=== PATIENT | male | born 1935 | race American Indian/Alaskan Native ===

== ENCOUNTER 2018-11-05 11:21 | Inpatient (IN) | payer MEDICARE, MEDICAID ==
--- NOTE | 2018-11-05 11:13 | EDM.PDOC ---
ED HPI GENERAL MEDICAL PROBLEM - General Stated Complaint: LOW BLOOD SUGAR Time Seen by Provider: 11/05/18 10:49 Source of Information: Reports: Patient, Provider History Limitations: Reports: No Limitations - History of Present Illness INITIAL COMMENTS - FREE TEXT/NARRATIVE: This 82 yo male patient was sent to the ED from the group home due to intermittent low blood sugar levels. This patient was admitted to [facility] with a history of an Osteomylitis of the T-spine (sent to [facility] from the [facility]). The patient has been getting IV antibiotics (Ceftriaxone) due to a blood culture that tested positive for Streptococcus anginosus. The patient started to have low blood sugars on Friday (blood sugars were in the 70's). The ambulance was called up to [facility] to start an IV (patient was given 1 amp of D50 and 500 mL of normal saline) . The patient's blood sugars were stable yesterday. Today, the patient had a blood sugar of 78 despite holding the patients Novolog and a reduction in the patient's Lantus from 32 units q HS to 25 units q HS. The patient reports he has noticed increased problems since the middle of June (difficulties walking). The patient reports that he did not have any swelling while he was in the hospital ([facility]). The patient reports he was started on insulin about 1 month ago, but did not have any problems until this week. The patient denies any current pain (denies abdominal pain, denies dysuria). The patient reports he has increased back pain (from hips up to his shoulder when he attempts to get up). Onset: Gradual Duration: Day(s):, Intermittent Location: Reports: Generalized Quality: Reports: Other Severity: Moderate Improves with: Reports: None Worsens with: Reports: None Context: Reports: Other Associated Symptoms: Reports: Weakness, Other (edema (extremities)) Back Pain Score (Numeric/FACES): 7 - Related Data Allergies Allergy/AdvReac Type Severity Reaction Status Date / Time bee venom protein (honey bee) Allergy Anaphylactic Verified 10/15/18 13:47 Shock Home Meds: Home Meds Levothyroxine 125 mcg PO DAILY 09/18/18 [History] Magnesium Oxide 800 mg PO 1200 09/18/18 [History] Simvastatin [Zocor] 20 mg PO BEDTIME 09/18/18 [History] Sodium Chloride 2 tab PO BID 09/18/18 [History] Tamsulosin [Flomax] 0.4 mg PO QPM 09/18/18 [History] Aspirin [Ecotrin] 81 mg PO DAILY 09/21/18 [History] Insulin Glarg,Human.Rec.Analog [Lantus] 32 unit SUBCUT DAILY #3 pen 09/21/18 [Rx ] Lisinopril 5 mg PO DAILY #30 09/21/18 [Rx] Hydrocodone/Acetaminophen [Hydrocodon-Acetaminophen 5-325] 1 tab PO Q6HR PRN [History] Magnesium Oxide 1,200 mg PO .QAM 10/12/18 [History] Sennosides/Docusate Sodium [Senna Laxative Tablet] 1 tab PO DAILY 10/12/18 [ History] Acetaminophen 1,000 mg PO Q6HR PRN 10/15/18 [History] Albuterol Sulfate [Proair Hfa] 2 puff INH Q6HR PRN 10/15/18 [History] Insulin Aspart [NovoLOG] 10 unit SUBCUT .QPM 10/15/18 [History] Insulin Aspart [NovoLOG] 16 unit SUBCUT 1200 10/15/18 [History] Insulin Aspart [NovoLOG] 16 unit SUBCUT QAM 10/15/18 [History] Multivitamin with Minerals [Multivitamins with Minerals] 1 tab PO DAILY [History] Polyethylene Glycol 3350 [MiraLAX] 17 gm PO DAILY PRN 10/15/18 [History] Acetaminophen/HYDROcodone [Ell[place] 325-5 MG] 11/05/18 [History] Lidocaine 5% [Lidoderm 5%] 1 patch TOP DAILY 11/05/18 [History] cefTRIAXone [Rocephin] 2 gm IV DAILY 11/05/18 [History] diphenhydrAMINE [Benadryl] 50 mg PO Q6HR PRN 11/05/18 [History] Past Medical History HEENT History: Reports: Hard of Hearing, Impaired Vision Cardiovascular History: Reports: High Cholesterol, Hypertension Respiratory History: Reports: None Gastrointestinal History: Reports: None Genitourinary History: Reports: Chronic Renal Insuffiency, Prostate Disorder Musculoskeletal History: Reports: Back Pain, Chronic Neurological History: Reports: None Psychiatric History: Reports: None Endocrine/Metabolic History: Reports: Diabetes, Type II, Hypothyroidism, Other ( See Below) Other Endocrine/Metabolic History: hypomagnesemia, hyponatremia Hematologic History: Reports: Other (See Below) Other Hematologic History: microalbuminuria Immunologic History: Reports: None Oncologic (Cancer) History: Reports: None Dermatologic History: Reports: None - Infectious Disease History Infectious Disease History: Reports: None - Past Surgical History Head Surgeries/Procedures: Reports: None HEENT Surgical History: Reports: Eye Surgery GI Surgical History: Reports: Cholecystectomy Male Surgical History: Reports: None Musculoskeletal Surgical History: Reports: Other (See Below) Other Musculoskeletal Surgeries/Procedures:: ankle surgery, back fusion Social & Family History - Family History Family Medical History: Noncontributory - Tobacco Use Smoking Status *Q: Never Smoker Second Hand Smoke Exposure: No - Caffeine Use Caffeine Use: Reports: Coffee, Tea - Recreational Drug Use Recreational Drug Use: No - Living Situation & Occupation Living situation: Reports: Alone Occupation: Retired ED ROS GENERAL - Review of Systems Review Of Systems: ROS reveals no pertinent complaints other than HPI. ED EXAM, GENERAL - Physical Exam Exam: See Below Exam Limited By: No Limitations General Appearance: Alert, WD/WN, Moderate Distress Eye Exam: Bilateral Eye: EOMI, Normal Inspection, PERRL Ears: Normal External Exam, Normal Canal, Hearing Grossly Normal, Normal TMs, Other (bilateral hearing aids) Nose: Normal Inspection, Normal Mucosa, No Blood Throat/Mouth: Normal Inspection, Normal Lips, Normal Teeth, Normal Gums, Normal Oropharynx, Normal Voice, No Airway Compromise Head: Atraumatic, Normocephalic Neck: Normal Inspection, Supple, Non-Tender, Full Range of Motion, Other ( cervical color in place) Respiratory/Chest: No Respiratory Distress, Lungs Clear, Normal Breath Sounds, No Accessory Muscle Use, Chest Non-Tender Cardiovascular: Normal Peripheral Pulses, Regular Rate, Rhythm, No Gallop, No JVD, No Murmur, No Rub GI/Abdominal: Normal Bowel Sounds, Soft, Non-Tender, No Organomegaly, No Distention, No Abnormal Bruit, No Mass (Male) Exam: Deferred Rectal (Males) Exam: Deferred Extremities: Pedal Edema, Other (edema in all extremities) Neurological: Alert, Oriented, CN II-XII Intact, Normal Cognition, Normal Gait, Normal Reflexes, No Motor/Sensory Deficits Psychiatric: Normal Affect, Normal Mood Skin Exam: Warm, Dry, Intact, Normal Color, No Rash Lymphatic: No Adenopathy Course - Vital Signs Last Recorded V/S: Last Vital Signs Temp 35.9 C 11/05/18 10:29 Pulse 76 11/05/18 10:29 Resp 16 11/05/18 10:29 BP 134/60 11/05/18 10:29 Pulse Ox 100 11/05/18 10:29 - Orders/Labs/Meds Orders: Active Orders 24 hr Category Date Time Status CULTURE BLOOD [BC] Stat Lab 11/05/18 10:02 Ordered CULTURE BLOOD [BC] Stat Lab 11/05/18 11:01 Received Blood Culture x2 Reflex Set [OM.PC] Stat Oth 11/05/18 10:01 Ordered Labs: Laboratory Tests 11/05/18 11/05/18 11/05/18 Range/Units 11:01 11:01 11:01 WBC 7.2 (5.0-10.0) 10^3/uL RBC 2.93 L (4.6-6.2) 10^6/uL Hgb 8.5 L (14.0-18.0) g/dL Hct 25.9 L (40.0-54.0) % MCV 88.4 (80-100) fL MCH 29.0 (27.0-34.0) pg MCHC 32.8 L (33.0-35.0) g/dL Plt Count 433 D (150-450) 10^3/uL Neut % (Auto) 71.2 (42.2-75.2) % Lymph % (Auto) 14.6 L (20.5-50.1) % F[place]ardo % (Auto) 7.0 (2-8) % Eos % (Auto) 6.4 H (1.0-3.0) % Baso % (Auto) 0.8 (0.0-1.0) % PT (9.0-12.0) SEC INR (0.9-1.2) Sodium (135-145) mmol/L Potassium (3.6-5.0) mmol/L Chloride (101-111) mmol/L Carbon Dioxide (21.0-31.0) mmol/L Anion Gap BUN (7-18) mg/dL Creatinine (0.6-1.3) mg/dL Est Cr Clr Drug Dosing mL/min Estimated GFR (MDRD) BUN/Creatinine Ratio Glucose (74-105) mg/dL Lactic Acid 1.8 (0.5-2.2) mmol/L Calcium (8.4-10.2) mg/dl Total Bilirubin (0.2-1.0) mg/dL AST (10-42) IU/L ALT (10-60) IU/L Alkaline Phosphatase (42-121) IU/L B-Natriuretic Peptide 90 (0-100) pg/ml Total Protein (6.7-8.2) g/dl Albumin (3.2-5.5) g/dl Globulin Albumin/Globulin Ratio Urine Color (YELLOW) Urine Appearance (CLEAR) Urine pH (5.0-9.0) Ur Specific Lyons (1.005-1.030) Urine Protein (NEGATIVE) Urine Glucose (UA) (NEGATIVE) Urine Ketones (NEGATIVE) Urine Occult Blood (NEGATIVE) Urine Nitrite (NEGATIVE) Urine Bilirubin (NEGATIVE) Urine Urobilinogen (0.2-1.0) mg/dL Ur Leukocyte Esterase (NEGATIVE) Urine RBC /HPF Urine WBC (0-5/HPF) /HPF Ur Epithelial Cells /HPF Amorphous Sediment (0/HPF) /HPF Urine Bacteria (0-FEW/HPF) /HPF Fine Granular Casts (0/LPF) /LPF Urine Yeast (0/HPF) /HPF 11/05/18 11/05/18 11/05/18 Range/Units 11:01 11:01 11:02 WBC (5.0-10.0) 10^3/uL RBC (4.6-6.2) 10^6/uL Hgb (14.0-18.0) g/dL Hct (40.0-54.0) % MCV (80-100) fL MCH (27.0-34.0) pg MCHC (33.0-35.0) g/dL Plt Count (150-450) 10^3/uL Neut % (Auto) (42.2-75.2) % Lymph % (Auto) (20.5-50.1) % F[place]ardo % (Auto) (2-8) % Eos % (Auto) (1.0-3.0) % Baso % (Auto) (0.0-1.0) % PT 10.8 (9.0-12.0) SEC INR 1.1 (0.9-1.2) Sodium 125 L (135-145) mmol/L Potassium 3.7 (3.6-5.0) mmol/L Chloride 90 L (101-111) mmol/L Carbon Dioxide 25.0 (21.0-31.0) mmol/L Anion Gap 13.7 BUN 18 (7-18) mg/dL Creatinine 0.8 (0.6-1.3) mg/dL Est Cr Clr Drug Dosing 84.20 mL/min Estimated GFR (MDRD) > 60 BUN/Creatinine Ratio 22.50 Glucose 156 H (74-105) mg/dL Lactic Acid (0.5-2.2) mmol/L Calcium 7.8 L (8.4-10.2) mg/dl Total Bilirubin 0.4 (0.2-1.0) mg/dL AST 47 H (10-42) IU/L ALT 52 (10-60) IU/L Alkaline Phosphatase 64 (42-121) IU/L B-Natriuretic Peptide (0-100) pg/ml Total Protein 6.3 L (6.7-8.2) g/dl Albumin 2.1 L (3.2-5.5) g/dl Globulin 4.2 Albumin/Globulin Ratio 0.50 Urine Color Yellow (YELLOW) Urine Appearance Slightly cloudy (CLEAR) Urine pH 6.0 (5.0-9.0) Ur Specific Lyons >= 1.030 (1.005-1.030) Urine Protein 100 H (NEGATIVE) Urine Glucose (UA) 250 H (NEGATIVE) Urine Ketones Negative (NEGATIVE) Urine Occult Blood Small H (NEGATIVE) Urine Nitrite Negative (NEGATIVE) Urine Bilirubin Negative (NEGATIVE) Urine Urobilinogen 0.2 (0.2-1.0) mg/dL Ur Leukocyte Esterase Negative (NEGATIVE) Urine RBC 5-10 H /HPF Urine WBC 0-5 (0-5/HPF) /HPF Ur Epithelial Cells Rare /HPF Amorphous Sediment Few (0/HPF) /HPF Urine Bacteria Rare (0-FEW/HPF) /HPF Fine Granular Casts Few H (0/LPF) /LPF Urine Yeast Moderate H (0/HPF) /HPF Departure - Departure Time of Disposition: 13:23 Disposition: Admitted As Inpatient 67 Condition: Fair Clinical Impression: Hyponatremia, Hypoglycemia - Discharge Information *PRESCRIPTION DRUG MONITORING PROGRAM REVIEWED*: Not Applicable *COPY OF PRESCRIPTION DRUG MONITORING REPORT IN PATIENT KEZIA: Not Applicable Instructions: Hyponatremia Forms: ED Department Discharge Care Plan Goals: Discussed the examination, history, and lab results with Dr. Cunningham. Dr. Cunningham accepted the patient for continued evaluation and management as an inpatient at [facility]. - My Orders Last 24 Hours: My Active Orders 11/05/18 10:01 Blood Culture x2 Reflex Set [OM.PC] Stat 11/05/18 10:02 CULTURE BLOOD [BC] Stat 11/05/18 11:01 CULTURE BLOOD [BC] Stat - Assessment/Plan Last 24 Hours: My Active Orders 11/05/18 10:01 Blood Culture x2 Reflex Set [OM.PC] Stat 11/05/18 10:02 CULTURE BLOOD [BC] Stat 11/05/18 11:01 CULTURE BLOOD [BC] Stat
[2018-11-05 11:28] LABS: ANION GAP 13.7; CHLORIDE,CL 90 mmol/L (101-111); SODIUM,NA 125 mmol/L (135-145)
[2018-11-05] MEDS ORDERED: Ondansetron 4 MG Tab.DIS PO PRN (15:12)
[2018-11-05] MEDS ORDERED: Magnesium Hydroxide 400 MG/5 ML Susp 30 ML Cup PO PRN (15:12)
[2018-11-05] MEDS ORDERED: Polyethylene Glycol 3350 Powder 17 GM Packet PO PRN (15:12)
[2018-11-05] MEDS ORDERED: Promethazine 25 MG/ML SDV IM PRN (15:12)
[2018-11-05] MEDS ORDERED: Promethazine 25 MG Tab PO PRN (15:12)
[2018-11-05] MEDS ORDERED: Docusate Sodium 100 MG Cap PO PRN (15:12)
[2018-11-05] MEDS ORDERED: Bisacodyl 5 MG Tab PO PRN (15:12)
[2018-11-05] MEDS ORDERED: Ondansetron 4 MG/2 ML SDV IVPUSH PRN (15:12)
[2018-11-05] MEDS ORDERED: Enoxaparin 40 MG/0.4 ML Syringe SUBCUT SCH (15:15)
[2018-11-05] MEDS ORDERED: Albuterol 6.7 GM Inhaler INH PRN (15:19)
[2018-11-05] MEDS ORDERED: diphenhydrAMINE 50 MG Cap PO PRN (15:19)
--- NOTE | 2018-11-05 15:33 | PCM.HP ---
H&P History of Present Illness - General Date of Service: 11/05/18 Admit Problem/Dx: Admission Diagnosis/Problem Admission Diagnosis/Problem CHF, Congestive heart failure - History of Present Illness Initial Comments - Free Text/Narative: Mr. Greenfield is an 82-y.o male [facility] medical history significant for DM II, osteomyelitis of the thoracic spine who was transferred to [facility] and subsequently sent to [facility] to continue IV antibiotics (Blood cultures were positive for Strep anginous), HTN, dyslipidemia, hyponatremia, CKD III, and anemia who was sent to the ED from [facility] after he had episodes of hypoglycemia and also found to have increasing oxygen requirement. Patient and son at bedside reports that he has been getting progressively short of breath with exertion. Son reports that he cannot walk 50 yards with without getting short of breath. Patient reports that his bed is kept at 15 degrees so cannot tell whether he would wake up short of breath with laying flat or not. However, he has noticed swelling of his hand and legs. He also reports that he has not been eating much since he came to [facility] because "they give me plant foods." States that he prefers mashed potatoes and gravy. States that the only medications he takes are "what they give me at the [facility]." He denies fevers, chills, abdominal pain, n/v/d/c. chest pain. Has a chronic indwelling perdue. States he has not ambulated on his own since June. Back Pain Score (Numeric/FACES): 7 - Related Data Allergies/Adverse Reactions: Allergies Allergy/AdvReac Type Severity Reaction Status Date / Time bee venom protein (honey bee) Allergy Anaphylactic Verified 10/15/18 13:47 Shock Home Medications: Home Meds Levothyroxine 125 mcg PO DAILY 09/18/18 [History] Magnesium Oxide 800 mg PO 1200 09/18/18 [History] Simvastatin [Zocor] 10 mg PO BEDTIME 09/18/18 [History] Sodium Chloride 2 tab PO QID 09/18/18 [History] Tamsulosin [Flomax] 0.4 mg PO QPM 09/18/18 [History] Aspirin [Ecotrin] 81 mg PO DAILY 09/21/18 [History] Insulin Glarg,Human.Rec.Analog [Lantus] 32 unit SUBCUT DAILY #3 pen 09/21/18 [Rx ] Lisinopril 5 mg PO DAILY #30 09/21/18 [Rx] Hydrocodone/Acetaminophen [Hydrocodon-Acetaminophen 5-325] 1 tab PO Q6HR PRN [History] Magnesium Oxide 1,200 mg PO .QAM 10/12/18 [History] Sennosides/Docusate Sodium [Senna Laxative Tablet] 1 tab PO DAILY 10/12/18 [ History] Multivitamin with Minerals [Multivitamins with Minerals] 1 tab PO DAILY [History] Polyethylene Glycol 3350 [MiraLAX] 17 gm PO DAILY PRN 10/15/18 [History] Acetaminophen 2 tab PO Q6H PRN 11/05/18 [History] Acetaminophen/HYDROcodone [[place] 325-5 MG] 1 - 2 tab PO Q6H PRN 11/05/18 [ History] Alteplase [Cathflo Activase] 2 ml IV ASDIRECTED 11/05/18 [History] Bisacodyl [Laxative Suppository] 1 supp.rect RECTAL DAILY PRN 11/05/18 [History] Carvedilol 1 tab PO BID 11/05/18 [History] Cholecalciferol (Vitamin D3) [Vitamin D3] 1 tab PO BID 11/05/18 [History] Enoxaparin Sodium 100 mg SQ DAILY 11/05/18 [History] Lidocaine 5% [Lidoderm 5%] 1 patch TOP DAILY 11/05/18 [History] Magnesium Hydroxide [Milk of Magnesia] 30 ml PO DAILY PRN 11/05/18 [History] Methocarbamol 1 tab PO Q6H PRN 11/05/18 [History] Na Phos,M-B/Na Phos,Di-Ba [Fleet Enema] 1 applic RECTAL DAILY PRN 11/05/18 [ History] cefTRIAXone [Rocephin] 2 gm IV DAILY 11/05/18 [History] diphenhydrAMINE HCl [Diphenhydramine HCl] 1 tab PO Q6H 11/05/18 [History] Past Medical History HEENT History: Reports: Hard of Hearing, Impaired Vision Cardiovascular History: Reports: High Cholesterol, Hypertension Respiratory History: Reports: None Gastrointestinal History: Reports: None Genitourinary History: Reports: Chronic Renal Insuffiency, Prostate Disorder Musculoskeletal History: Reports: Back Pain, Chronic Neurological History: Reports: None Psychiatric History: Reports: None Endocrine/Metabolic History: Reports: Diabetes, Type II, Hypothyroidism, Other ( See Below) Other Endocrine/Metabolic History: hypomagnesemia, hyponatremia Hematologic History: Reports: Other (See Below) Other Hematologic History: microalbuminuria Immunologic History: Reports: None Oncologic (Cancer) History: Reports: None Dermatologic History: Reports: None - Infectious Disease History Infectious Disease History: Reports: None - Past Surgical History Head Surgeries/Procedures: Reports: None HEENT Surgical History: Reports: Eye Surgery GI Surgical History: Reports: Cholecystectomy Male Surgical History: Reports: None Musculoskeletal Surgical History: Reports: Other (See Below) Other Musculoskeletal Surgeries/Procedures:: ankle surgery, back fusion Social & Family History - Family History Family Medical History: Noncontributory - Tobacco Use Smoking Status *Q: Never Smoker Second Hand Smoke Exposure: No - Caffeine Use Caffeine Use: Reports: Coffee, Tea - Recreational Drug Use Recreational Drug Use: No - Living Situation & Occupation Living situation: Reports: Alone Occupation: Retired H&P Review of Systems - Review of Systems: Review Of Systems: ROS reveals no pertinent complaints other than HPI. General: Reports: Weakness HEENT: Reports: No Symptoms Pulmonary: Reports: Shortness of Breath Cardiovascular: Reports: Edema Gastrointestinal: Reports: No Symptoms Genitourinary: Reports: Other (Perdue in place) Musculoskeletal: Reports: Back Pain Skin: Reports: No Symptoms Psychiatric: Reports: No Symptoms Neurological: Reports: No Symptoms Hematologic/Lymphatic: Reports: No Symptoms Immunologic: Reports: No Symptoms Exam - Exam Exam: See Below - Vital Signs Vital Signs: Last Vital Signs Temp 98.4 F 11/05/18 14:49 Pulse 76 11/05/18 14:49 Resp 20 11/05/18 14:49 BP 138/68 11/05/18 14:49 Pulse Ox 100 11/05/18 14:49 Weight: 221 lb 1.6 oz - Exam General: Alert, Oriented HEENT: Conjunctiva Clear, Mucosa Moist & [place], Other (Hard of hearing. Hearing aids in place. ) Neck: Supple, Trachea Midline Lungs: Crackles Cardiovascular: Regular Rate, Regular Rhythm GI/Abdominal Exam: Normal Bowel Sounds, Soft, Non-Tender, No Distention, Other ( Bilateral flank edema extending to the back. ) Back Exam: Vertebral Tenderness (Limited exam due to patient being in brace. ) Extremities: Normal Inspection, Normal Range of Motion, Pedal Edema, Other ( Edema of the hands) Peripheral Pulses: 1+: Radial (L), Radial (R), Dorsalis Pedis (L), Dorsalis Pedis (R) Skin: Warm, Dry, Intact Neurological: Babinski Absent Neuro Extensive - Mental Status: Alert, Oriented x3, Normal Mood/Affect, Normal Cognition Psychiatric: Alert, Normal Affect, Normal Mood - Patient Data Lab Results Last 24 hrs: Laboratory Results - last 24 hr 11/05/18 11/05/18 11/05/18 Range/Units 11:01 11:01 11:01 WBC 7.2 (5.0-10.0) 10^3/uL RBC 2.93 L (4.6-6.2) 10^6/uL Hgb 8.5 L (14.0-18.0) g/dL Hct 25.9 L (40.0-54.0) % MCV 88.4 (80-100) fL MCH 29.0 (27.0-34.0) pg MCHC 32.8 L (33.0-35.0) g/dL Plt Count 433 D (150-450) 10^3/uL Neut % (Auto) 71.2 (42.2-75.2) % Lymph % (Auto) 14.6 L (20.5-50.1) % Rock % (Auto) 7.0 (2-8) % Eos % (Auto) 6.4 H (1.0-3.0) % Baso % (Auto) 0.8 (0.0-1.0) % PT (9.0-12.0) SEC INR (0.9-1.2) Sodium (135-145) mmol/L Potassium (3.6-5.0) mmol/L Chloride (101-111) mmol/L Carbon Dioxide (21.0-31.0) mmol/L Anion Gap BUN (7-18) mg/dL Creatinine (0.6-1.3) mg/dL Est Cr Clr Drug Dosing mL/min Estimated GFR (MDRD) BUN/Creatinine Ratio Glucose (74-105) mg/dL Lactic Acid 1.8 (0.5-2.2) mmol/L Calcium (8.4-10.2) mg/dl Total Bilirubin (0.2-1.0) mg/dL AST (10-42) IU/L ALT (10-60) IU/L Alkaline Phosphatase (42-121) IU/L B-Natriuretic Peptide 90 (0-100) pg/ml Total Protein (6.7-8.2) g/dl Albumin (3.2-5.5) g/dl Globulin Albumin/Globulin Ratio Urine Color (YELLOW) Urine Appearance (CLEAR) Urine pH (5.0-9.0) Ur Specific [place] (1.005-1.030) Urine Protein (NEGATIVE) Urine Glucose (UA) (NEGATIVE) Urine Ketones (NEGATIVE) Urine Occult Blood (NEGATIVE) Urine Nitrite (NEGATIVE) Urine Bilirubin (NEGATIVE) Urine Urobilinogen (0.2-1.0) mg/dL Ur Leukocyte Esterase (NEGATIVE) Urine RBC /HPF Urine WBC (0-5/HPF) /HPF Ur Epithelial Cells /HPF Amorphous Sediment (0/HPF) /HPF Urine Bacteria (0-FEW/HPF) /HPF Fine Granular Casts (0/LPF) /LPF Urine Yeast (0/HPF) /HPF 11/05/18 11/05/18 11/05/18 Range/Units 11:01 11:01 11:02 WBC (5.0-10.0) 10^3/uL RBC (4.6-6.2) 10^6/uL Hgb (14.0-18.0) g/dL Hct (40.0-54.0) % MCV (80-100) fL MCH (27.0-34.0) pg MCHC (33.0-35.0) g/dL Plt Count (150-450) 10^3/uL Neut % (Auto) (42.2-75.2) % Lymph % (Auto) (20.5-50.1) % Rock % (Auto) (2-8) % Eos % (Auto) (1.0-3.0) % Baso % (Auto) (0.0-1.0) % PT 10.8 (9.0-12.0) SEC INR 1.1 (0.9-1.2) Sodium 125 L (135-145) mmol/L Potassium 3.7 (3.6-5.0) mmol/L Chloride 90 L (101-111) mmol/L Carbon Dioxide 25.0 (21.0-31.0) mmol/L Anion Gap 13.7 BUN 18 (7-18) mg/dL Creatinine 0.8 (0.6-1.3) mg/dL Est Cr Clr Drug Dosing 84.20 mL/min Estimated GFR (MDRD) > 60 BUN/Creatinine Ratio 22.50 Glucose 156 H (74-105) mg/dL Lactic Acid (0.5-2.2) mmol/L Calcium 7.8 L (8.4-10.2) mg/dl Total Bilirubin 0.4 (0.2-1.0) mg/dL AST 47 H (10-42) IU/L ALT 52 (10-60) IU/L Alkaline Phosphatase 64 (42-121) IU/L B-Natriuretic Peptide (0-100) pg/ml Total Protein 6.3 L (6.7-8.2) g/dl Albumin 2.1 L (3.2-5.5) g/dl Globulin 4.2 Albumin/Globulin Ratio 0.50 Urine Color Yellow (YELLOW) Urine Appearance Slightly cloudy (CLEAR) Urine pH 6.0 (5.0-9.0) Ur Specific [place] >= 1.030 (1.005-1.030) Urine Protein 100 H (NEGATIVE) Urine Glucose (UA) 250 H (NEGATIVE) Urine Ketones Negative (NEGATIVE) Urine Occult Blood Small H (NEGATIVE) Urine Nitrite Negative (NEGATIVE) Urine Bilirubin Negative (NEGATIVE) Urine Urobilinogen 0.2 (0.2-1.0) mg/dL Ur Leukocyte Esterase Negative (NEGATIVE) Urine RBC 5-10 H /HPF Urine WBC 0-5 (0-5/HPF) /HPF Ur Epithelial Cells Rare /HPF Amorphous Sediment Few (0/HPF) /HPF Urine Bacteria Rare (0-FEW/HPF) /HPF Fine Granular Casts Few H (0/LPF) /LPF Urine Yeast Moderate H (0/HPF) /HPF Result Diagrams: 11/05/18 11:01 11/05/18 11:01 - Problem List (1) Osteomyelitis SNOMED Code(s): 25598615 ICD Code: M86.9 - OSTEOMYELITIS, UNSPECIFIED Status: Acute Current Visit : Yes (2) Generalized weakness SNOMED Code(s): 00563912 ICD Code: R53.1 - WEAKNESS Status: Acute Priority: Medium Current Visit : No (3) Hypoglycemia SNOMED Code(s): 268436343 ICD Code: E16.2 - HYPOGLYCEMIA, UNSPECIFIED Status: Acute Current Visit: No (4) Chronic back pain SNOMED Code(s): 925748590 ICD Code: M54.9 - DORSALGIA, UNSPECIFIED; G89.29 - OTHER CHRONIC PAIN Status: Chronic Current Visit: No (5) Hyperlipidemia SNOMED Code(s): 41099532 ICD Code: E78.5 - HYPERLIPIDEMIA, UNSPECIFIED Status: Chronic Current Visit: No (6) Hypothyroidism SNOMED Code(s): 89147049 ICD Code: E03.9 - HYPOTHYROIDISM, UNSPECIFIED Status: Chronic Current Visit: No Problem List Initiated/Reviewed/Updated: Yes Orders Last 24hrs: Active Orders 24 hr Category Date Time Status Patient Status [ADT] Routine ADT 11/05/18 15:13 Ordered Blood Glucose Check, Bedside [RC] QIDACANDBED Care 11/05/18 15:12 Ordered Cardiac Monitoring [RC] CONTINUOUS Care 11/05/18 15:15 Ordered Height and Weight [RC] DAILY Care 11/05/18 15:12 Ordered Intake and Output [RC] QSHIFT Care 11/05/18 15:14 Ordered Oxygen Therapy [RC] PRN Care 11/05/18 15:13 Ordered Up With Assistance [RC] ASDIRECTED Care 11/05/18 15:12 Ordered VTE/DVT Education [RC] PER UNIT ROUTINE Care 11/05/18 15:13 Ordered Vital Signs [RC] Q4H Care 11/05/18 15:13 Ordered Regular Diet [DIET] Diet 11/05/18 Dinner Ordered BASIC METABOLIC PANEL,BMP [CHEM] AM Lab 11/06/18 05:11 Ordered CBC W/O DIFF,HEMOGRAM [HEME] AM Lab 11/06/18 05:11 Ordered CULTURE BLOOD [BC] Stat Lab 11/05/18 11:01 Received MAGNESIUM [CHEM] AM Lab 11/06/18 05:11 Ordered PHOSPHORUS [CHEM] AM Lab 11/06/18 05:11 Ordered Acetaminophen [Tylenol Extra Strength] Med 11/05/18 15:19 Ordered 1,000 mg PO Q6HR PRN Acetaminophen/HYDROcodone [[place] 325-5 MG] Med 11/05/18 15:30 Unverified DOSE UNIT RTE FREQ Albuterol [Proventil HFA] Med 11/05/18 15:19 Ordered 2 puff INH Q6HR PRN Aspirin [Halfprin] Med 11/06/18 09:00 Ordered 81 mg PO DAILY Bisacodyl [Dulcolax] Med 11/05/18 15:12 Ordered 5 mg PO DAILY PRN Docusate Sodium [Colace] Med 11/05/18 15:12 Ordered 100 mg PO BID PRN Docusate Sodium/Sennosides [Senna Plus] Med 11/05/18 15:12 Ordered 1 tab PO BEDTIME PRN Docusate Sodium/Sennosides [Senna Plus] Med 11/06/18 09:00 Ordered 1 tab PO DAILY Enoxaparin [Lovenox] Med 11/05/18 15:15 Ordered 40 mg SUBCUT DAILY Furosemide [Lasix] Med 11/05/18 15:30 Ordered 40 mg IVPUSH DAILY Levothyroxine Med 11/06/18 09:00 Ordered 125 mcg PO DAILY Lidocaine 5% [Lidoderm 5%] Med 11/06/18 09:00 Ordered 1 patch TOP DAILY Lisinopril [Prinivil] Med 11/06/18 09:00 Ordered 5 mg PO DAILY Magnesium Hydroxide [Milk of Magnesia] Med 11/05/18 15:12 Ordered 30 ml PO Q12H PRN Multivitamin with Minerals [Multivitamins with Minerals Med 11/06/18 09:00 Ordered ] 1 tab PO DAILY Ondansetron [Zofran ODT] Med 11/05/18 15:12 Ordered 4 mg PO Q6H PRN Ondansetron [Zofran] Med 11/05/18 15:12 Ordered 4 mg IVPUSH Q6H PRN Polyethylene Glycol 3350 [MiraLAX] Med 11/05/18 15:12 Ordered 17 gm PO DAILY PRN Promethazine [Phenergan] Med 11/05/18 15:12 Ordered 12.5 mg IM Q6H PRN Promethazine [Phenergan] Med 11/05/18 15:12 Ordered 25 mg PO Q6H PRN Sodium Chloride Med 11/05/18 15:30 Ordered 2 tab PO BID Tamsulosin [Flomax] Med 11/05/18 15:30 Ordered 0.4 mg PO QPM cefTRIAXone [Rocephin] Med 11/06/18 09:00 Ordered 2 gm IV DAILY diphenhydrAMINE [Benadryl] Med 11/05/18 15:19 Ordered 50 mg PO Q6HR PRN Blood Culture x2 Reflex Set [OM.PC] Stat Oth 11/05/18 10:01 Ordered Resuscitation Status Routine Resus Stat 11/05/18 15:12 Ordered Medication Orders Acetaminophen (Tylenol Extra Strength) 1,000 mg PO Q6HR PRN PRN Reason: Pain Albuterol (Proventil Hfa) gm INH Q6HR PRN PRN Reason: Wheezing Aspirin (Halfprin) 81 mg PO DAILY MARINA Bisacodyl (Dulcolax) 5 mg PO DAILY PRN PRN Reason: Constipation Diphenhydramine HCl (Benadryl) 50 mg PO Q6HR PRN PRN Reason: Itching Docusate Sodium (Colace) 100 mg PO BID PRN PRN Reason: Constipation Enoxaparin Sodium (Lovenox) 40 mg SUBCUT DAILY MARINA Furosemide (Lasix) 40 mg IVPUSH DAILY MARINA Stop: 11/08/18 15:31 Levothyroxine Sodium (Levothyroxine) 125 mcg PO DAILY MARINA Lidocaine (Lidoderm 5%) mg TOP DAILY MARINA Lisinopril (Prinivil) 5 mg PO DAILY MARINA Magnesium Hydroxide (Milk Of Magnesia) 30 ml PO Q12H PRN PRN Reason: Constipation Non-Formulary Medication (Ceftriaxone [Rocephin]) 2 gm IV DAILY MARINA Non-Formulary Medication (Multivitamin With Minerals [Multivitamins With Minerals]) 1 tab PO DAILY MARINA Ondansetron HCl (Zofran Odt) 4 mg PO Q6H PRN PRN Reason: nausea, able to take PO Ondansetron HCl (Zofran) 4 mg IVPUSH Q6H PRN PRN Reason: Nausea/Vomiting Polyethylene Glycol (Miralax) 17 gm PO DAILY PRN PRN Reason: Constipation Promethazine HCl (Phenergan) 25 mg PO Q6H PRN PRN Reason: nausea, able to take PO Promethazine HCl (Phenergan) 12.5 mg IM Q6H PRN PRN Reason: Nausea/Vomiting Senna/Docusate Sodium (Senna Plus) 1 tab PO BEDTIME PRN PRN Reason: Constipation Senna/Docusate Sodium (Senna Plus) 1 tab PO DAILY [facility] Sodium Chloride (Sodium Chloride) gm PO BID MARINA Tamsulosin HCl (Flomax) 0.4 mg PO QPM [facility] Assessment/Plan Comment:: # Acute on chronic CHF: increased weight from 207 on 10/21/2018 to 221lb today. Also with edema and worsening shortness of breath. - Tele monitoring - IV lasix - Strict I/Os. - Daily weights. - Liberalized diet due to hypovolemia and hypoglycemia. # Hypoglycemia: uncertain etiology. Patient has been hypoglycemic in [facility] despite being cut down on insulin. - Hold all diabetes medications. - Accuchecks AC and HS. #Osteomyelitis/Discitis: was seen in [facility]. Currently on Ceftriaxone and wearing back brace. - Continue Ceftriaxone - Continue back brace - Fall precautions. 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 - Continue sodium chloride tabs - Will start on fluid restriction. #Anemia of chronic disease: - Hb at baseline. - Monitor CBC #Hypothyroidism: - continue synthroid at 150 mcg, was recently increased at [facility] # Bladder outlet obstruction: Perdue in place - Routine perdue care.
[2018-11-05] MEDS: Acetaminophen 500 MG Tab PO PRN (16:31)
[2018-11-05] MEDS: Sodium Chloride 1 GM Tab PO SCH ×2 (16:32→20:28)
[2018-11-05] MEDS: Furosemide 40 MG/4 ML VIAL IVPUSH SCH (16:34)
[2018-11-05] MEDS: Acetaminophen/HYDROcodone 325-5 MG Tab PO SCH (19:43)
[2018-11-05] MEDS: Tamsulosin 0.4 MG Cap.ER PO SCH (20:28)
[2018-11-05] MEDS: Sodium Chloride 0.9% 10 ML Syringe FLUSH PRN (20:31)
[2018-11-05] MEDS ORDERED: cefTRIAXone 1 GM Vial IVPUSH SCH (21:00)
[2018-11-06] MEDS: Acetaminophen/HYDROcodone 325-5 MG Tab PO SCH ×5 (00:29→23:27)
[2018-11-06] MEDS: Levothyroxine 125 MCG Tab PO SCH (05:27)
[2018-11-06 06:53] LABS: ANION GAP 11.7; CHLORIDE,CL 93 mmol/L (101-111); SODIUM,NA 127 mmol/L (135-145)
[2018-11-06] MEDS ORDERED: Magnesium Sulfate/Water 2 GM in Premix Bag 1 BAG IV ONE (09:00)
[2018-11-06] MEDS: Lidocaine 5% 700 MG Patch TOP SCH (09:18)
[2018-11-06] MEDS: Multivitamins, Therapeutic with Minerals Tab PO SCH (09:19)
[2018-11-06] MEDS: Furosemide 40 MG/4 ML VIAL IVPUSH SCH (09:19)
[2018-11-06] MEDS: Aspirin 81 MG Tab.EC PO SCH (09:20)
[2018-11-06] MEDS: Lisinopril 5 MG Tab PO SCH (09:20)
[2018-11-06] MEDS: Sodium Chloride 1 GM Tab PO SCH ×2 (09:20→20:34)
--- NOTE | 2018-11-06 16:27 | PCM.PN ---
- General Info Date of Service: 11/06/18 Admission Dx/Problem (Free Text): Admission Diagnosis/Problem Admission Diagnosis/Problem CHF, Congestive heart failure Functional Status: Reports: Pain Controlled - Review of Systems General: Reports: No Symptoms HEENT: Reports: No Symptoms Pulmonary: Reports: No Symptoms Cardiovascular: Reports: No Symptoms Gastrointestinal: Reports: No Symptoms Genitourinary: Reports: No Symptoms Musculoskeletal: Reports: No Symptoms Skin: Reports: Pruritis (Under the neck colar of his brace) Neurological: Reports: No Symptoms Psychiatric: Reports: No Symptoms - Patient Data Vitals - Most Recent: Last Vital Signs Temp 98.8 F 11/06/18 11:46 Pulse 76 11/06/18 11:46 Resp 20 11/06/18 11:46 BP 140/72 11/06/18 11:46 Pulse Ox 98 11/06/18 11:46 Weight - Most Recent: 221 lb 6.4 oz I&O - Last 24 Hours: Intake & Output 11/06/18 11/06/18 11/06/18 06:59 14:59 22:59 Intake Total 150 640 Output Total 825 2300 Balance -675 -1660 Lab Results Last 24 Hours: Laboratory Results - last 24 hr 11/05/18 11/05/18 11/06/18 Range/Units 17:08 21:11 05:55 WBC 6.3 (5.0-10.0) 10^3/uL RBC 2.67 L (4.6-6.2) 10^6/uL Hgb 8.0 L (14.0-18.0) g/dL Hct 23.6 L (40.0-54.0) % MCV 88.4 (80-100) fL MCH 30.0 (27.0-34.0) pg MCHC 33.9 (33.0-35.0) g/dL Plt Count 422 (150-450) 10^3/uL Sodium (135-145) mmol/L Potassium (3.6-5.0) mmol/L Chloride (101-111) mmol/L Carbon Dioxide (21.0-31.0) mmol/L Anion Gap BUN (7-18) mg/dL Creatinine (0.6-1.3) mg/dL Est Cr Clr Drug Dosing mL/min Estimated GFR (MDRD) Glucose (74-105) mg/dL POC Glucose 231 H 228 H (83-110) mg/dl Calcium (8.4-10.2) mg/dl Phosphorus (2.5-4.6) mg/dL Magnesium (1.8-2.5) mg/dL 11/06/18 11/06/18 11/06/18 Range/Units 05:55 06:56 11:32 WBC (5.0-10.0) 10^3/uL RBC (4.6-6.2) 10^6/uL Hgb (14.0-18.0) g/dL Hct (40.0-54.0) % MCV (80-100) fL MCH (27.0-34.0) pg MCHC (33.0-35.0) g/dL Plt Count (150-450) 10^3/uL Sodium 127 L (135-145) mmol/L Potassium 3.7 (3.6-5.0) mmol/L Chloride 93 L (101-111) mmol/L Carbon Dioxide 26.0 (21.0-31.0) mmol/L Anion Gap 11.7 BUN 18 (7-18) mg/dL Creatinine 0.9 (0.6-1.3) mg/dL Est Cr Clr Drug Dosing 76.94 mL/min Estimated GFR (MDRD) > 60 Glucose 87 (74-105) mg/dL POC Glucose 82 L 141 H (83-110) mg/dl Calcium 7.5 L (8.4-10.2) mg/dl Phosphorus 3.3 (2.5-4.6) mg/dL Magnesium 1.3 L (1.8-2.5) mg/dL Keny Results Last 24 Hours: Microbiology 11/05/18 11:01 Aerobic Blood Culture - Preliminary Blood - Venous NO GROWTH AFTER 1 DAY Anaerobic Blood Culture - Preliminary NO GROWTH AFTER 1 DAY Med Orders - Current: Current Medications Acetaminophen (Tylenol Extra Strength) 1,000 mg PO Q6HR PRN PRN Reason: Pain Last Admin: 11/05/18 16:31 Dose: 1,000 mg Hydrocodone Bitart/Acetaminophen ([place] 325-5 Mg) 1 - 2 tab PO Q6H [facility] Last Admin: 11/06/18 11:35 Dose: 1 tab Albuterol (Proventil Hfa) 0 gm INH Q6HR PRN PRN Reason: Wheezing Aspirin (Halfprin) 81 mg PO DAILY [facility] Last Admin: 11/06/18 09:20 Dose: 81 mg Bisacodyl (Dulcolax) 5 mg PO DAILY PRN PRN Reason: Constipation Diphenhydramine HCl (Benadryl) 50 mg PO Q6HR PRN PRN Reason: Itching Docusate Sodium (Colace) 100 mg PO BID PRN PRN Reason: Constipation Furosemide (Lasix) 40 mg PO DAILY [facility] Ceftriaxone Sodium 2 gm/ (Sodium Chloride) 100 mls @ 200 mls/hr IV Q24H [facility] Levothyroxine Sodium (Levothyroxine) 125 mcg PO ACBRK [facility] Last Admin: 11/06/18 05:27 Dose: 125 mcg Lidocaine (Lidoderm 5%) 700 mg TOP DAILY [facility] Last Admin: 11/06/18 09:18 Dose: 700 mg Lisinopril (Prinivil) 5 mg PO DAILY [facility] Last Admin: 11/06/18 09:20 Dose: 5 mg Magnesium Hydroxide (Milk Of Magnesia) 30 ml PO Q12H PRN PRN Reason: Constipation Miscellaneous Information (Remove Patch) 1 ea TRDERM BEDTIME [facility] Last Admin: 11/05/18 20:28 Dose: Not Given Multivitamins/Minerals (Vitamins And Minerals) 1 tab PO DAILY [facility] Last Admin: 11/06/18 09:19 Dose: 1 tab Ondansetron HCl (Zofran Odt) 4 mg PO Q6H PRN PRN Reason: nausea, able to take PO Ondansetron HCl (Zofran) 4 mg IVPUSH Q6H PRN PRN Reason: Nausea/Vomiting Polyethylene Glycol (Miralax) 17 gm PO DAILY PRN PRN Reason: Constipation Promethazine HCl (Phenergan) 25 mg PO Q6H PRN PRN Reason: nausea, able to take PO Promethazine HCl (Phenergan) 12.5 mg IM Q6H PRN PRN Reason: Nausea/Vomiting Senna/Docusate Sodium (Senna Plus) 1 tab PO BEDTIME PRN PRN Reason: Constipation Senna/Docusate Sodium (Senna Plus) 1 tab PO DAILY [facility] Last Admin: 11/06/18 09:20 Dose: 1 tab Sodium Chloride (Sodium Chloride) 2 gm PO BID [facility] Last Admin: 11/06/18 09:20 Dose: 2 gm Sodium Chloride (Saline Flush) 10 ml FLUSH ASDIRECTED PRN PRN Reason: Keep Vein Open Last Admin: 11/05/18 20:31 Dose: 10 ml Tamsulosin HCl (Flomax) 0.4 mg PO BEDTIME [facility] Last Admin: 11/05/18 20:28 Dose: 0.4 mg Discontinued Medications Ceftriaxone Sodium (Rocephin) 2 gm IVPUSH DAILY@2100 [facility] Last Admin: 11/05/18 20:30 Dose: 2 gm Enoxaparin Sodium (Lovenox) 40 mg SUBCUT DAILY [facility] Last Admin: 11/06/18 04:37 Dose: Not Given Furosemide (Lasix) 40 mg IVPUSH DAILY [facility] Stop: 11/08/18 15:31 Last Admin: 11/06/18 09:19 Dose: 40 mg Magnesium Sulfate 2 gm/ Premix 50 mls @ 25 mls/hr IV ONETIME ONE Stop: 11/06/18 10:59 Last Admin: 11/06/18 09:18 Dose: 25 mls/hr - Exam General: Alert, Oriented, No Acute Distress HEENT: Pupils Equal, Pupils Reactive, EOMI, Mucous Membr. Moist/[place] Neck: Other (Neck brace in place as past of thoracolumbar brace. ) Lungs: Clear to Auscultation (Anterior lung gerard), Normal Respiratory Effort Cardiovascular: Regular Rate, Regular Rhythm GI/Abdominal Exam: Normal Bowel Sounds, Soft, Non-Tender, No Distention (Male) Exam: Other (Perdue catheter in place) Extremities: Normal Inspection, Non-Tender, Other (Edema is improved. ) Peripheral Pulses: 1+: Radial (L), Radial (R), Dorsalis Pedis (L), Dorsalis Pedis (R) Skin: Warm, Dry, Intact Wound/Incisions: Decubitis Neurological: No New Focal Deficit Psy/Mental Status: Alert, Normal Affect, Normal Mood - Problem List & Annotations (1) Osteomyelitis SNOMED Code(s): 47128204 Code(s): M86.9 - OSTEOMYELITIS, UNSPECIFIED Status: Acute Current Visit: Yes (2) Generalized weakness SNOMED Code(s): 28042680 Code(s): R53.1 - WEAKNESS Status: Acute Priority: Medium Current Visit : No (3) Hypoglycemia SNOMED Code(s): 143222364 Code(s): E16.2 - HYPOGLYCEMIA, UNSPECIFIED Status: Acute Priority: High Current Visit: No (4) Chronic back pain SNOMED Code(s): 728852910 Code(s): M54.9 - DORSALGIA, UNSPECIFIED; G89.29 - OTHER CHRONIC PAIN Status : Chronic Current Visit: Yes (5) Hyperlipidemia SNOMED Code(s): 68266978 Code(s): E78.5 - HYPERLIPIDEMIA, UNSPECIFIED Status: Chronic Current Visit: No (6) Hypothyroidism SNOMED Code(s): 37482524 Code(s): E03.9 - HYPOTHYROIDISM, UNSPECIFIED Status: Chronic Current Visit: Yes (7) Acute CHF (congestive heart failure) SNOMED Code(s): 79128240 Code(s): I50.9 - HEART FAILURE, UNSPECIFIED Status: Acute Current Visit: Yes (8) Hyponatremia SNOMED Code(s): 80586974 Code(s): E87.1 - HYPO-OSMOLALITY AND HYPONATREMIA Status: Acute Current Visit: No - Problem List Review Problem List Initiated/Reviewed/Updated: Yes - My Orders Last 24 Hours: My Active Orders 11/05/18 15:30 Sodium Chloride 2 gm PO BID 11/05/18 16:36 Sodium Chloride 0.9% [Saline Flush] 10 ml FLUSH ASDIRECTED PRN 11/05/18 17:30 Acetaminophen/HYDROcodone [[place] 325-5 MG] 1 - 2 tab PO Q6H 11/05/18 18:34 OT Evaluation and Treatment [CONS] Routine PT Evaluation and Treatment [CONS] Routine 11/05/18 18:41 Antiembolic Devices [RC] PALLAVI Hose [Antiembolic Hose] [OM.PC] Routine 11/05/18 21:00 Remove Patch 1 ea TRDERM BEDTIME Tamsulosin [Flomax] 0.4 mg PO BEDTIME 11/05/18 Dinner Regular Diet [DIET] 11/06/18 06:00 Levothyroxine 125 mcg PO ACBRK 11/06/18 09:00 Aspirin [Halfprin] 81 mg PO DAILY Docusate Sodium/Sennosides [Senna Plus] 1 tab PO DAILY Lidocaine 5% [Lidoderm 5%] 700 mg TOP DAILY Lisinopril [Prinivil] 5 mg PO DAILY Multivitamins/Minerals [Vitamins and Minerals] 1 tab PO DAILY 11/06/18 21:00 cefTRIAXone [Rocephin] 2 gm Sodium Chloride 0.9% [Normal Saline] 100 ml IV Q24H 11/06/18 Breakfast Fluid Restriction [DIET] 11/07/18 05:11 BASIC METABOLIC PANEL,BMP [CHEM] AM CBC W/O DIFF,HEMOGRAM [HEME] AM 11/07/18 09:00 Furosemide [Lasix] 40 mg PO DAILY - Plan Plan:: # Acute on chronic CHF: Diuresing well on IV lasix. Net negative 2300 cc today. Increased weight from 207 on 10/21/2018 to 221lb on admission. Also with edema and worsening shortness of breath. - Tele monitoring - D/c IV lasix - Start PO lasix - Strict I/Os. - Daily weights. - Liberalized diet due to hypovolemia and hypoglycemia. # Hypoglycemia: uncertain etiology. [facility] been hypoglycemic in [facility] despite being cut down on insulin. - Hold all diabetes medications. - Accuchecks AC and HS. #Osteomyelitis/Discitis: was seen in [facility]. Currently on Ceftriaxone and wearing back brace. - Continue Ceftriaxone - Continue back brace - Fall precautions. 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 - Continue sodium chloride tabs - Continue fluid restriction. #Anemia of chronic disease: - Hb at baseline but dropped to 8.0 today. No source of bleeding. - Monitor CBC #Hypothyroidism: - continue synthroid at 150 mcg, was recently increased at [facility] # Bladder outlet obstruction: Perdue in place - Routine perdue care. #DVT PPx: held due to bleeding diathesis.
[2018-11-06] MEDS: cefTRIAXone 2 GM in Sodium Chloride 0.9% 100 ML IV SCH (20:33)
[2018-11-06] MEDS: Tamsulosin 0.4 MG Cap.ER PO SCH (20:34)
[2018-11-06] MEDS: Acetaminophen 500 MG Tab PO PRN (21:10)
[2018-11-07] MEDS: Acetaminophen/HYDROcodone 325-5 MG Tab PO SCH ×4 (05:47→23:53)
[2018-11-07] MEDS: Levothyroxine 125 MCG Tab PO SCH (05:48)
[2018-11-07 06:38] LABS: ANION GAP 15.3; CHLORIDE,CL 91 mmol/L (101-111); SODIUM,NA 127 mmol/L (135-145)
[2018-11-07] MEDS: Aspirin 81 MG Tab.EC PO SCH (08:59)
[2018-11-07] MEDS: Furosemide 40 MG Tab PO SCH (08:59)
[2018-11-07] MEDS: Sodium Chloride 1 GM Tab PO SCH ×2 (09:00→20:48)
[2018-11-07] MEDS: Lisinopril 5 MG Tab PO SCH (09:00)
[2018-11-07] MEDS: Multivitamins, Therapeutic with Minerals Tab PO SCH (09:00)
[2018-11-07] MEDS: Sodium Chloride 0.9% 10 ML Syringe FLUSH PRN (09:01)
[2018-11-07] MEDS: Lidocaine 5% 700 MG Patch TOP SCH (09:01)
--- NOTE | 2018-11-07 13:34 | PCM.PN ---
- General Info Date of Service: 11/07/18 Admission Dx/Problem (Free Text): Admission Diagnosis/Problem Admission Diagnosis/Problem CHF, Congestive heart failure Subjective Update: No acute events overnight. Denies any complaints. - Review of Systems General: Reports: No Symptoms HEENT: Reports: No Symptoms Pulmonary: Reports: No Symptoms Cardiovascular: Reports: No Symptoms Gastrointestinal: Reports: No Symptoms Genitourinary: Reports: No Symptoms Musculoskeletal: Reports: No Symptoms Skin: Reports: No Symptoms Neurological: Reports: No Symptoms Psychiatric: Reports: No Symptoms - Patient Data Vitals - Most Recent: Last Vital Signs Temp 98.2 F 11/07/18 11:15 Pulse 72 11/07/18 11:15 Resp 18 11/07/18 11:15 BP 149/78 H 11/07/18 11:15 Pulse Ox 99 11/07/18 11:15 Weight - Most Recent: 214 lb 12.8 oz I&O - Last 24 Hours: Intake & Output 11/06/18 11/07/18 11/07/18 22:59 06:59 14:59 Intake Total 295 150 520 Output Total 700 200 Balance -405 -50 520 Lab Results Last 24 Hours: Laboratory Results - last 24 hr 11/06/18 11/06/18 11/07/18 Range/Units 16:37 21:15 05:40 WBC 6.1 (5.0-10.0) 10^3/uL RBC 2.85 L (4.6-6.2) 10^6/uL Hgb 8.3 L (14.0-18.0) g/dL Hct 25.0 L (40.0-54.0) % MCV 87.7 (80-100) fL MCH 29.1 (27.0-34.0) pg MCHC 33.2 (33.0-35.0) g/dL Plt Count 426 (150-450) 10^3/uL Sodium (135-145) mmol/L Potassium (3.6-5.0) mmol/L Chloride (101-111) mmol/L Carbon Dioxide (21.0-31.0) mmol/L Anion Gap BUN (7-18) mg/dL Creatinine (0.6-1.3) mg/dL Est Cr Clr Drug Dosing mL/min Estimated GFR (MDRD) Glucose (74-105) mg/dL POC Glucose 235 H 230 H (83-110) mg/dl Calcium (8.4-10.2) mg/dl 11/07/18 11/07/18 11/07/18 Range/Units 05:40 06:55 10:50 WBC (5.0-10.0) 10^3/uL RBC (4.6-6.2) 10^6/uL Hgb (14.0-18.0) g/dL Hct (40.0-54.0) % MCV (80-100) fL MCH (27.0-34.0) pg MCHC (33.0-35.0) g/dL Plt Count (150-450) 10^3/uL Sodium 127 L (135-145) mmol/L Potassium 4.3 (3.6-5.0) mmol/L Chloride 91 L (101-111) mmol/L Carbon Dioxide 25.0 (21.0-31.0) mmol/L Anion Gap 15.3 BUN 19 H (7-18) mg/dL Creatinine 1.0 (0.6-1.3) mg/dL Est Cr Clr Drug Dosing 69.24 mL/min Estimated GFR (MDRD) > 60 Glucose 178 H (74-105) mg/dL POC Glucose 184 H 238 H (83-110) mg/dl Calcium 8.0 L (8.4-10.2) mg/dl Keny Results Last 24 Hours: Microbiology 11/05/18 11:01 Aerobic Blood Culture - Preliminary Blood - Venous NO GROWTH AFTER 2 DAYS Anaerobic Blood Culture - Preliminary NO GROWTH AFTER 2 DAYS Med Orders - Current: Current Medications Acetaminophen (Tylenol Extra Strength) 1,000 mg PO Q6HR PRN PRN Reason: Pain Last Admin: 11/06/18 21:10 Dose: 1,000 mg Hydrocodone Bitart/Acetaminophen ([place] 325-5 Mg) 1 - 2 tab PO Q6H [facility] Last Admin: 11/07/18 12:10 Dose: 1 tab Albuterol (Proventil Hfa) 0 gm INH Q6HR PRN PRN Reason: Wheezing Aspirin (Halfprin) 81 mg PO DAILY [facility] Last Admin: 11/07/18 08:59 Dose: 81 mg Bisacodyl (Dulcolax) 5 mg PO DAILY PRN PRN Reason: Constipation Diphenhydramine HCl (Benadryl) 50 mg PO Q6HR PRN PRN Reason: Itching Docusate Sodium (Colace) 100 mg PO BID PRN PRN Reason: Constipation Furosemide (Lasix) 40 mg PO DAILY [facility] Last Admin: 11/07/18 08:59 Dose: 40 mg Ceftriaxone Sodium 2 gm/ (Sodium Chloride) 100 mls @ 200 mls/hr IV Q24H [facility] Last Admin: 11/06/18 20:33 Dose: 200 mls/hr Levothyroxine Sodium (Levothyroxine) 125 mcg PO ACBRK [facility] Last Admin: 11/07/18 05:48 Dose: 125 mcg Lidocaine (Lidoderm 5%) 700 mg TOP DAILY [facility] Last Admin: 11/07/18 09:01 Dose: 700 mg Lisinopril (Prinivil) 5 mg PO DAILY [facility] Last Admin: 11/07/18 09:00 Dose: 5 mg Magnesium Hydroxide (Milk Of Magnesia) 30 ml PO Q12H PRN PRN Reason: Constipation Miscellaneous Information (Remove Patch) 1 ea TRDERM BEDTIME [facility] Last Admin: 11/06/18 20:35 Dose: Not Given Multivitamins/Minerals (Vitamins And Minerals) 1 tab PO DAILY [facility] Last Admin: 11/07/18 09:00 Dose: 1 tab Ondansetron HCl (Zofran Odt) 4 mg PO Q6H PRN PRN Reason: nausea, able to take PO Ondansetron HCl (Zofran) 4 mg IVPUSH Q6H PRN PRN Reason: Nausea/Vomiting Polyethylene Glycol (Miralax) 17 gm PO DAILY PRN PRN Reason: Constipation Promethazine HCl (Phenergan) 25 mg PO Q6H PRN PRN Reason: nausea, able to take PO Promethazine HCl (Phenergan) 12.5 mg IM Q6H PRN PRN Reason: Nausea/Vomiting Senna/Docusate Sodium (Senna Plus) 1 tab PO BEDTIME PRN PRN Reason: Constipation Senna/Docusate Sodium (Senna Plus) 1 tab PO DAILY [facility] Last Admin: 11/07/18 09:00 Dose: 1 tab Sodium Chloride (Sodium Chloride) 2 gm PO BID [facility] Last Admin: 11/07/18 09:00 Dose: 2 gm Sodium Chloride (Saline Flush) 10 ml FLUSH ASDIRECTED PRN PRN Reason: Keep Vein Open Last Admin: 11/07/18 09:01 Dose: 10 ml Tamsulosin HCl (Flomax) 0.4 mg PO BEDTIME [facility] Last Admin: 11/06/18 20:34 Dose: 0.4 mg Discontinued Medications Ceftriaxone Sodium (Rocephin) 2 gm IVPUSH DAILY@2100 [facility] Last Admin: 11/05/18 20:30 Dose: 2 gm Enoxaparin Sodium (Lovenox) 40 mg SUBCUT DAILY [facility] Last Admin: 11/06/18 04:37 Dose: Not Given Furosemide (Lasix) 40 mg IVPUSH DAILY [facility] Stop: 11/08/18 15:31 Last Admin: 11/06/18 09:19 Dose: 40 mg Magnesium Sulfate 2 gm/ Premix 50 mls @ 25 mls/hr IV ONETIME ONE Stop: 11/06/18 10:59 Last Admin: 11/06/18 09:18 Dose: 25 mls/hr - Exam General: Alert, Oriented HEENT: Pupils Equal, Pupils Reactive, EOMI, Mucous Membr. Moist/[place] Lungs: Clear to Auscultation (In anterior lung gerard. ), Normal Respiratory Effort Cardiovascular: Regular Rate, Regular Rhythm GI/Abdominal Exam: Normal Bowel Sounds, Soft, No Distention Extremities: Normal Inspection, Non-Tender, No Pedal Edema Peripheral Pulses: 2+: Radial (L), Radial (R), Dorsalis Pedis (L), Dorsalis Pedis (R) Skin: Warm, Dry, Intact Neurological: No New Focal Deficit Psy/Mental Status: Alert, Normal Affect, Normal Mood Physical Findings Comments:: Wearing brace. - Problem List & Annotations (1) Osteomyelitis SNOMED Code(s): 59188209 Code(s): M86.9 - OSTEOMYELITIS, UNSPECIFIED Status: Acute Current Visit: Yes (2) Generalized weakness SNOMED Code(s): 30570443 Code(s): R53.1 - WEAKNESS Status: Acute Priority: Medium Current Visit : No (3) Hypoglycemia SNOMED Code(s): 804166545 Code(s): E16.2 - HYPOGLYCEMIA, UNSPECIFIED Status: Acute Priority: High Current Visit: No (4) Chronic back pain SNOMED Code(s): 964276828 Code(s): M54.9 - DORSALGIA, UNSPECIFIED; G89.29 - OTHER CHRONIC PAIN Status : Chronic Current Visit: Yes (5) Hyperlipidemia SNOMED Code(s): 76228747 Code(s): E78.5 - HYPERLIPIDEMIA, UNSPECIFIED Status: Chronic Current Visit: No (6) Hypothyroidism SNOMED Code(s): 09136224 Code(s): E03.9 - HYPOTHYROIDISM, UNSPECIFIED Status: Chronic Current Visit: Yes (7) Acute CHF (congestive heart failure) SNOMED Code(s): 87074463 Code(s): I50.9 - HEART FAILURE, UNSPECIFIED Status: Acute Current Visit: Yes (8) Hyponatremia SNOMED Code(s): 48245965 Code(s): E87.1 - HYPO-OSMOLALITY AND HYPONATREMIA Status: Acute Current Visit: No - Problem List Review Problem List Initiated/Reviewed/Updated: Yes - My Orders Last 24 Hours: My Active Orders 11/06/18 21:00 cefTRIAXone [Rocephin] 2 gm Sodium Chloride 0.9% [Normal Saline] 100 ml IV Q24H 11/07/18 09:00 Furosemide [Lasix] 40 mg PO DAILY - Plan Plan:: # Acute on chronic CHF: Diuresing well on IV lasix. Net negative 2300 cc today. Increased weight from 207 on 10/21/2018 to 221lb on admission. Also with edema and worsening shortness of breath. - D/c Tele monitoring - Continue PO lasix - Strict I/Os. - Daily weights. - Liberalized diet due to hypovolemia and hypoglycemia. # Hypoglycemia: BG controlled off diabetes medications. Got pudding at 3 am today. uncertain etiology. [facility] being [facility] down [facility] insulin. - Hold all diabetes medications. - Accuchecks AC and HS. #Osteomyelitis/Discitis: was seen in [facility]. Currently on Ceftriaxone and wearing back brace. - Continue Ceftriaxone - Continue back brace - Fall precautions. 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 - Continue sodium chloride tabs - Continue fluid restriction. #Anemia of chronic disease: - Hb at baseline but dropped to 8.0 today. No source of bleeding. - Monitor CBC #Hypothyroidism: - continue synthroid at 150 mcg, was recently increased at [facility] # Bladder outlet obstruction: Perdue in place - Routine perdue care. #DVT PPx: held due to bleeding diathesis.
[2018-11-07] MEDS: Acetaminophen 500 MG Tab PO PRN (19:43)
--- NOTE | 2018-11-07 19:55 | PCM.SN ---
- Free Text/Narrative Note: Mr. Greenfield was seen this evening for removal of the sutures from his spinal surgery ([facility]). He voiced no new concerns or complaints. Care was done with the assistance of one of the nurse. His brace was removed and his arms were supported so that he could maintain a comfortable position. There is a well-healed, clean midline incision from the mid-thoracic to lower- thoracic region. No redness, no induration, no drainage. The incision is approximately 25 cm in length. The sutures were removed. The incision was covered with dry Telfa and paper tape. We will continue to monitor daily. Mr. Greenfield also has a Ortiz catheter. This was placed post-operatively for urinary retention. Pre-operatively he had been performing self-catheterization. An order was placed to remove the Ortiz in the morning and monitor urine output. We would like to try this prior to returning to the [facility]. Mr. Greenfield will discharged back to [facility] on 11/09/18.
[2018-11-07] MEDS: cefTRIAXone 2 GM in Sodium Chloride 0.9% 100 ML IV SCH (20:47)
[2018-11-07] MEDS: Tamsulosin 0.4 MG Cap.ER PO SCH (20:48)
[2018-11-08] MEDS: Levothyroxine 125 MCG Tab PO SCH (05:34)
[2018-11-08] MEDS: Acetaminophen/HYDROcodone 325-5 MG Tab PO SCH ×2 (05:34→12:51)
[2018-11-08] MEDS: Sodium Chloride 1 GM Tab PO SCH ×2 (10:35→20:34)
[2018-11-08] MEDS: Furosemide 40 MG Tab PO SCH (10:35)
[2018-11-08] MEDS: Multivitamins, Therapeutic with Minerals Tab PO SCH (10:36)
[2018-11-08] MEDS: Aspirin 81 MG Tab.EC PO SCH (10:36)
[2018-11-08] MEDS: Lisinopril 5 MG Tab PO SCH (10:40)
[2018-11-08] MEDS: Lidocaine 5% 700 MG Patch TOP SCH (10:46)
[2018-11-08] MEDS: Sodium Chloride 0.9% 10 ML Syringe FLUSH PRN (10:51)
[2018-11-08] MEDS ORDERED: Acetaminophen/HYDROcodone 325-5 MG Tab PO PRN (11:28)
[2018-11-08] MEDS ORDERED: NA PHOS DI BA RECTAL PRN (11:28)
[2018-11-08] MEDS ORDERED: NA PHOS M B RECTAL PRN (11:28)
[2018-11-08] MEDS ORDERED: METHOCARBAMOL PO PRN (11:28)
[2018-11-08] MEDS ORDERED: Polyethylene Glycol 3350 Powder 17 GM Packet PO PRN (11:28)
[2018-11-08] MEDS ORDERED: Alteplase 2 MG Vial IV PRN (11:30)
--- NOTE | 2018-11-08 11:35 | PCM.PN ---
- General Info Date of Service: 11/08/18 Admission Dx/Problem (Free Text): Admission Diagnosis/Problem Admission Diagnosis/Problem CHF, Congestive heart failure Subjective Update: No acute events overnight. Denies any complaints. Has no fevers, chills, cough, chest pain, shortness of breath, abdominal pain, or any new symptoms. - Review of Systems Systems Review Comment:: per subjective update above. - Patient Data Vitals - Most Recent: Last Vital Signs Temp 98.4 F 11/08/18 08:00 Pulse 72 11/08/18 08:00 Resp 18 11/08/18 08:00 BP 153/73 H 11/08/18 10:40 Pulse Ox 98 11/08/18 08:00 Weight - Most Recent: 205 lb 11.2 oz I&O - Last 24 Hours: Intake & Output 11/07/18 11/08/18 11/08/18 22:59 06:59 14:59 Intake Total 560 300 200 Output Total 3150 2000 Balance -2590 -1700 200 Lab Results Last 24 Hours: Laboratory Results - last 24 hr 11/07/18 11/07/18 11/08/18 Range/Units 16:50 20:41 05:55 Hgb 8.9 L (14.0-18.0) g/dL Hct 27.1 L (40.0-54.0) % ESR 82 H (0-15) mm/hr POC Glucose 242 H 264 H (83-110) mg/dl C-Reactive Protein (0.0-1.3) mg/dL 11/08/18 11/08/18 11/08/18 Range/Units 05:55 06:58 11:03 Hgb (14.0-18.0) g/dL Hct (40.0-54.0) % ESR (0-15) mm/hr POC Glucose 208 H 308 H (83-110) mg/dl C-Reactive Protein 2.2 H (0.0-1.3) mg/dL Keny Results Last 24 Hours: Microbiology 11/05/18 11:01 Aerobic Blood Culture - Preliminary Blood - Venous NO GROWTH AFTER 3 DAYS Anaerobic Blood Culture - Preliminary NO GROWTH AFTER 3 DAYS Med Orders - Current: Current Medications Acetaminophen (Tylenol Extra Strength) 1,000 mg PO Q6HR PRN PRN Reason: Pain Last Admin: 11/07/18 19:43 Dose: 1,000 mg Hydrocodone Bitart/Acetaminophen (Sunset 325-5 Mg) 1 - 2 tab PO Q6H [facility] Last Admin: 11/08/18 05:34 Dose: 1 tab Hydrocodone Bitart/Acetaminophen (Sunset 325-5 Mg) 1 tab PO Q6HR PRN PRN Reason: Pain Albuterol (Proventil Hfa) 0 gm INH Q6HR PRN PRN Reason: Wheezing Alteplase, Recombinant (Cathflo Activase) mg IV ASDIRECTED [facility] Aspirin (Halfprin) 81 mg PO DAILY [facility] Last Admin: 11/08/18 10:36 Dose: 81 mg Bisacodyl (Dulcolax) 5 mg PO DAILY PRN PRN Reason: Constipation Carvedilol (Coreg) mg PO BID [facility] Diphenhydramine HCl (Benadryl) 50 mg PO Q6HR PRN PRN Reason: Itching Docusate Sodium (Colace) 100 mg PO BID PRN PRN Reason: Constipation Furosemide (Lasix) 40 mg PO DAILY [facility] Last Admin: 11/08/18 10:35 Dose: 40 mg Ceftriaxone Sodium 2 gm/ (Sodium Chloride) 100 mls @ 200 mls/hr IV Q24H [facility] Last Admin: 11/07/18 20:47 Dose: 200 mls/hr Levothyroxine Sodium (Levothyroxine) 125 mcg PO ACBRK [facility] Last Admin: 11/08/18 05:34 Dose: 125 mcg Lidocaine (Lidoderm 5%) 700 mg TOP DAILY [facility] Last Admin: 11/08/18 10:46 Dose: 700 mg Lisinopril (Prinivil) 5 mg PO DAILY [facility] Last Admin: 11/08/18 10:40 Dose: 5 mg Magnesium Hydroxide (Milk Of Magnesia) 30 ml PO Q12H PRN PRN Reason: Constipation Miscellaneous Information (Remove Patch) 1 ea TRDERM BEDTIME [facility] Last Admin: 11/07/18 21:08 Dose: Not Given Multivitamins/Minerals (Vitamins And Minerals) 1 tab PO DAILY [facility] Last Admin: 11/08/18 10:36 Dose: 1 tab Non-Formulary Medication (Cholecalciferol (Vitamin D3) [Vitamin D3]) 1 tab PO BID [facility] Non-Formulary Medication (Magnesium Oxide [Magnesium Oxide]) 800 mg PO 1200 [facility] Non-Formulary Medication (Magnesium Oxide [Magnesium Oxide]) 1,200 mg PO .QAM [facility] Non-Formulary Medication (Methocarbamol [Methocarbamol]) 1 tab PO Q6H PRN PRN Reason: Muscle Spasm Non-Formulary Medication (Na Phos,M-B/Na Phos,Di-Ba [Fleet Enema]) 1 applic RECTAL DAILY PRN PRN Reason: Keep Vein Open Ondansetron HCl (Zofran Odt) 4 mg PO Q6H PRN PRN Reason: nausea, able to take PO Ondansetron HCl (Zofran) 4 mg IVPUSH Q6H PRN PRN Reason: Nausea/Vomiting Polyethylene Glycol (Miralax) 17 gm PO DAILY PRN PRN Reason: Constipation Polyethylene Glycol (Miralax) 17 gm PO DAILY PRN PRN Reason: Constipation Promethazine HCl (Phenergan) 25 mg PO Q6H PRN PRN Reason: nausea, able to take PO Promethazine HCl (Phenergan) 12.5 mg IM Q6H PRN PRN Reason: Nausea/Vomiting Senna/Docusate Sodium (Senna Plus) 1 tab PO BEDTIME PRN PRN Reason: Constipation Senna/Docusate Sodium (Senna Plus) 1 tab PO DAILY [facility] Last Admin: 11/08/18 10:36 Dose: 1 tab Simvastatin (Zocor) 10 mg PO BEDTIME [facility] Sodium Chloride (Sodium Chloride) 2 gm PO BID [facility] Last Admin: 11/08/18 10:35 Dose: 2 gm Sodium Chloride (Saline Flush) 10 ml FLUSH ASDIRECTED PRN PRN Reason: Keep Vein Open Last Admin: 11/08/18 10:51 Dose: 10 ml Tamsulosin HCl (Flomax) 0.4 mg PO BEDTIME [facility] Last Admin: 11/07/18 20:48 Dose: 0.4 mg Discontinued Medications Ceftriaxone Sodium (Rocephin) 2 gm IVPUSH DAILY@2100 [facility] Last Admin: 11/05/18 20:30 Dose: 2 gm Enoxaparin Sodium (Lovenox) 40 mg SUBCUT DAILY [facility] Last Admin: 11/06/18 04:37 Dose: Not Given Furosemide (Lasix) 40 mg IVPUSH DAILY [facility] Stop: 11/08/18 15:31 Last Admin: 11/06/18 09:19 Dose: 40 mg Magnesium Sulfate 2 gm/ Premix 50 mls @ 25 mls/hr IV ONETIME ONE Stop: 11/06/18 10:59 Last Admin: 11/06/18 09:18 Dose: 25 mls/hr - Exam General: Alert, Oriented HEENT: Pupils Equal, Pupils Reactive, EOMI Lungs: Clear to Auscultation (In anterior lung gerard. ), Normal Respiratory Effort Cardiovascular: Regular Rate, Regular Rhythm GI/Abdominal Exam: Normal Bowel Sounds, Soft, Non-Tender, No Distention (Male) Exam: Other (Perdue catheter in place, draining clear yellow fluid) Extremities: Normal Inspection, Normal Range of Motion Skin: Warm, Dry, Intact Neurological: No New Focal Deficit Psy/Mental Status: Alert, Normal Affect, Normal Mood - Problem List & Annotations (1) Osteomyelitis SNOMED Code(s): 14813983 Code(s): M86.9 - OSTEOMYELITIS, UNSPECIFIED Status: Acute Current Visit: Yes (2) Generalized weakness SNOMED Code(s): 66611914 Code(s): R53.1 - WEAKNESS Status: Acute Priority: Medium Current Visit : No (3) Hypoglycemia SNOMED Code(s): 849055923 Code(s): E16.2 - HYPOGLYCEMIA, UNSPECIFIED Status: Acute Priority: High Current Visit: No (4) Chronic back pain SNOMED Code(s): 519006170 Code(s): M54.9 - DORSALGIA, UNSPECIFIED; G89.29 - OTHER CHRONIC PAIN Status : Chronic Current Visit: Yes (5) Hyperlipidemia SNOMED Code(s): 86437336 Code(s): E78.5 - HYPERLIPIDEMIA, UNSPECIFIED Status: Chronic Current Visit: No (6) Hypothyroidism SNOMED Code(s): 24206807 Code(s): E03.9 - HYPOTHYROIDISM, UNSPECIFIED Status: Chronic Current Visit: Yes (7) Acute CHF (congestive heart failure) SNOMED Code(s): 04540727 Code(s): I50.9 - HEART FAILURE, UNSPECIFIED Status: Acute Current Visit: Yes (8) Hyponatremia SNOMED Code(s): 33575997 Code(s): E87.1 - HYPO-OSMOLALITY AND HYPONATREMIA Status: Acute Current Visit: No - Problem List Review Problem List Initiated/Reviewed/Updated: Yes - My Orders Last 24 Hours: My Active Orders 11/08/18 11:28 Acetaminophen/HYDROcodone [Sunset 325-5 MG] 1 tab PO Q6HR PRN Methocarbamol [Methocarbamol] 1 tab PO Q6H PRN Na Phos,M-B/Na Phos,Di-Ba [Fleet Enema] 1 applic RECTAL DAILY PRN Polyethylene Glycol 3350 [MiraLAX] 17 gm PO DAILY PRN 11/08/18 11:30 Alteplase [Cathflo Activase] 2 ml IV ASDIRECTED Magnesium Oxide [Magnesium Oxide] 1,200 mg PO .QAM 11/08/18 12:00 Magnesium Oxide [Magnesium Oxide] 800 mg PO 1200 11/08/18 21:00 Carvedilol [Coreg] 1 tab PO BID Cholecalciferol (Vitamin D3) [Vitamin D3] 1 tab PO BID Simvastatin [Zocor] 10 mg PO BEDTIME 11/09/18 05:11 BASIC METABOLIC PANEL,BMP [CHEM] AM CBC W/O DIFF,HEMOGRAM [HEME] AM MAGNESIUM [CHEM] AM PHOSPHORUS [CHEM] AM - Plan Plan:: # Acute on chronic CHF: Diuresing well on IV lasix. Net negative 2300 cc today. Increased weight from 207 on 10/21/2018 to 221lb on admission. Also with edema and worsening shortness of breath. - D/c Tele monitoring - Continue PO lasix - Strict I/Os. - Daily weights. - Liberalized diet due to hypovolemia and hypoglycemia. # Hypoglycemia: BG controlled off diabetes medications. Got pudding at 3 am today. uncertain etiology. Patient has been hypoglycemic in [facility] despite being cut down on insulin. - Hold all diabetes medications. - Accuchecks AC and HS. #Osteomyelitis/Discitis: was seen in [facility]. Currently on Ceftriaxone and wearing back brace. - Continue Ceftriaxone - Continue back brace - Fall precautions. 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 - Continue sodium chloride tabs - Continue fluid restriction. #Anemia of chronic disease: - Hb at baseline but dropped to 8.0 today. No source of bleeding. - Monitor CBC #Hypothyroidism: - continue synthroid at 150 mcg, was recently increased at [facility] # Bladder outlet obstruction: Perdue in place - Routine perdue care. #DVT PPx: held due to bleeding diathesis.
[2018-11-08] MEDS: Carvedilol 6.25 MG Tab PO SCH (17:27)
[2018-11-08] MEDS: cefTRIAXone 2 GM in Sodium Chloride 0.9% 100 ML IV SCH (20:32)
[2018-11-08] MEDS: Tamsulosin 0.4 MG Cap.ER PO SCH (20:34)
[2018-11-08] MEDS ORDERED: Simvastatin 10 MG Tab PO SCH (21:00)
[2018-11-08] MEDS ORDERED: Non-Formulary Medication 1 Each (Cholecalciferol (Vitamin D3) [Vitamin D3] 1 TAB) PO SCH (21:00)
[2018-11-09] MEDS: Levothyroxine 125 MCG Tab PO SCH (05:53)
[2018-11-09 07:02] LABS: ANION GAP 17.3; CHLORIDE,CL 89 mmol/L (101-111); SODIUM,NA 125 mmol/L (135-145)
[2018-11-09] MEDS: Sodium Chloride 1 GM Tab PO SCH (08:34)
[2018-11-09] MEDS: Multivitamins, Therapeutic with Minerals Tab PO SCH (08:34)
[2018-11-09] MEDS: Furosemide 40 MG Tab PO SCH (08:34)
[2018-11-09] MEDS: Aspirin 81 MG Tab.EC PO SCH (08:34)
[2018-11-09] MEDS: Lisinopril 5 MG Tab PO SCH (08:35)
[2018-11-09] MEDS: Carvedilol 6.25 MG Tab PO SCH (08:36)
[2018-11-09] MEDS: Lidocaine 5% 700 MG Patch TOP SCH (08:36)
--- NOTE | 2018-11-09 10:31 | PCM.DCSUM1 ---
Discharge Summary - Hospital Course Free Text/Narrative:: Mr. Greenfield was admitted for acute CHF exacerbation and hypoglycemia. He was started on IV lasix with significant diuresis. IV lasix was changed to PO and he tolerated it well. Patient was getting hypoglycemic in long term. His diabetes medications were held during this hospitalization. BG went down to 82 morning after admission but remained in the above 150s. Highest was in the 300s. He was continued on his Ceftriaxone for his osteomyelitis. Dr. Ng came in to remove sutures and place orders. She was also noted to have reconciled part of patient's discharge medications. However, I held patient's lantus for the dose to be titrated on at the long term in order to avoid conflicting management approaches. HPI Initial Comments: viri Greenfield is an 82-y.o male [facility] medical history significant for DM II, osteomyelitis of the thoracic spine who was transferred to [facility] and subsequently sent to [facility] to continue IV antibiotics (Blood cultures were positive for Strep anginous), HTN, dyslipidemia, hyponatremia, CKD III, and anemia who was sent to the ED from long term after he had episodes of hypoglycemia and also found to have increasing oxygen requirement. Patient and son at bedside reports that he has been getting progressively short of breath with exertion. Son reports that he cannot walk 50 yards with without getting short of breath. Patient reports that his bed is kept at 15 degrees so cannot tell whether he would wake up short of breath with laying flat or not. However, he has noticed swelling of his hand and legs. He also reports that he has not been eating much since he came to [facility] because "they give me plant foods." States that he prefers mashed potatoes and gravy. States that the only medications he takes are "what they give me at the long term." He denies fevers, chills, abdominal pain, n/v/d/c. chest pain. Has a chronic indwelling perdue. States he has not ambulated on his own since June. Diagnosis: Stroke: No - Discharge Data Discharge Date: 11/09/18 Discharge Disposition: DC/Tfer to SNF 03 Condition: Good - Discharge Diagnosis/Problem(s) (1) Osteomyelitis SNOMED Code(s): 30272336 ICD Code: M86.9 - OSTEOMYELITIS, UNSPECIFIED Status: Acute (2) Generalized weakness SNOMED Code(s): 78340938 ICD Code: R53.1 - WEAKNESS Status: Acute Priority: Medium (3) Hypoglycemia SNOMED Code(s): 473864476 ICD Code: E16.2 - HYPOGLYCEMIA, UNSPECIFIED Status: Acute Priority: High (4) Chronic back pain SNOMED Code(s): 882766453 ICD Code: M54.9 - DORSALGIA, UNSPECIFIED; G89.29 - OTHER CHRONIC PAIN Status: Chronic (5) Hyperlipidemia SNOMED Code(s): 60907049 ICD Code: E78.5 - HYPERLIPIDEMIA, UNSPECIFIED Status: Chronic (6) Hypothyroidism SNOMED Code(s): 43692953 ICD Code: E03.9 - HYPOTHYROIDISM, UNSPECIFIED Status: Chronic (7) Acute CHF (congestive heart failure) SNOMED Code(s): 16228893 ICD Code: I50.9 - HEART FAILURE, UNSPECIFIED Status: Acute Qualifiers: Heart failure type: unspecified Qualified Code(s): I50.9 - Heart failure, unspecified (8) Hyponatremia SNOMED Code(s): 58893542 ICD Code: E87.1 - HYPO-OSMOLALITY AND HYPONATREMIA Status: Acute - Patient Summary/Data Consults: Consultations 11/05/18 18:34 OT Evaluation and Treatment [CONS] Routine PT Evaluation and Treatment [CONS] Routine - Patient Instructions Diet: Heart Healthy Diet - Discharge Plan *PRESCRIPTION DRUG MONITORING PROGRAM REVIEWED*: Not Applicable *COPY OF PRESCRIPTION DRUG MONITORING REPORT IN PATIENT KEZIA: Not Applicable Home Medications: Home Meds Levothyroxine 125 mcg PO DAILY 09/18/18 [History] Magnesium Oxide 800 mg PO 1200 09/18/18 [History] Simvastatin [Zocor] 10 mg PO BEDTIME 09/18/18 [History] Sodium Chloride 2 tab PO QID 09/18/18 [History] Tamsulosin [Flomax] 0.4 mg PO QPM 09/18/18 [History] Aspirin [Ecotrin] 81 mg PO DAILY 09/21/18 [History] Lisinopril 5 mg PO DAILY #30 09/21/18 [Rx] Hydrocodone/Acetaminophen [Hydrocodon-Acetaminophen 5-325] 1 tab PO Q6HR PRN [History] Magnesium Oxide 1,200 mg PO .QAM 10/12/18 [History] Sennosides/Docusate Sodium [Senna Laxative Tablet] 1 tab PO DAILY 10/12/18 [ History] Multivitamin with Minerals [Multivitamins with Minerals] 1 tab PO DAILY [History] Polyethylene Glycol 3350 [MiraLAX] 17 gm PO DAILY PRN 10/15/18 [History] Acetaminophen 2 tab PO Q6H PRN 11/05/18 [History] Acetaminophen/HYDROcodone [[place] 325-5 MG] 1 - 2 tab PO Q6H PRN 11/05/18 [ History] Alteplase [Cathflo Activase] 2 ml IV ASDIRECTED 11/05/18 [History] Bisacodyl [Laxative Suppository] 1 supp.rect RECTAL DAILY PRN 11/05/18 [History] Carvedilol 1 tab PO BID 11/05/18 [History] Cholecalciferol (Vitamin D3) [Vitamin D3] 1 tab PO BID 11/05/18 [History] Enoxaparin Sodium 100 mg SQ DAILY 11/05/18 [History] Lidocaine 5% [Lidoderm 5%] 1 patch TOP DAILY 11/05/18 [History] Magnesium Hydroxide [Milk of Magnesia] 30 ml PO DAILY PRN 11/05/18 [History] Methocarbamol 1 tab PO Q6H PRN 11/05/18 [History] Na Phos,M-B/Na Phos,Di-Ba [Fleet Enema] 1 applic RECTAL DAILY PRN 11/05/18 [ History] cefTRIAXone [Rocephin] 2 gm IV DAILY 11/05/18 [History] diphenhydrAMINE HCl [Diphenhydramine HCl] 1 tab PO Q6H 11/05/18 [History] Oxygen Therapy Mode: Room Air Patient Handouts: Hyponatremia - Discharge Summary/Plan Comment DC Time >30 min.: Yes - General Info Date of Service: 11/09/18 Admission Dx/Problem (Free Text: Admission Diagnosis/Problem Admission Diagnosis/Problem CHF, Congestive heart failure Subjective Update: No acute events overnight. Denies any complaints. Has no fevers, chills, cough, chest pain, shortness of breath, abdominal pain, or any new symptoms. - Review of Systems Systems Review Comment: As per subjective update - Patient Data Vitals - Most Recent: Last Vital Signs Temp 97.2 F 11/09/18 08:00 Pulse 77 11/09/18 08:36 Resp 18 11/09/18 08:00 BP 164/87 H 11/09/18 08:36 Pulse Ox 98 11/09/18 08:00 Weight - Most Recent: 200 lb 11.2 oz I&O - Last 24 hours: Intake & Output 11/08/18 11/09/18 11/09/18 22:59 06:59 14:59 Intake Total 100 200 Output Total 900 750 500 Balance -900 -650 -300 Lab Results - Last 24 hrs: Laboratory Results - last 24 hr 11/08/18 11/08/18 11/08/18 Range/Units 11:03 16:58 20:45 WBC (5.0-10.0) 10^3/uL RBC (4.6-6.2) 10^6/uL Hgb (14.0-18.0) g/dL Hct (40.0-54.0) % MCV (80-100) fL MCH (27.0-34.0) pg MCHC (33.0-35.0) g/dL Plt Count (150-450) 10^3/uL Sodium (135-145) mmol/L Potassium (3.6-5.0) mmol/L Chloride (101-111) mmol/L Carbon Dioxide (21.0-31.0) mmol/L Anion Gap BUN (7-18) mg/dL Creatinine (0.6-1.3) mg/dL Est Cr Clr Drug Dosing mL/min Estimated GFR (MDRD) Glucose (74-105) mg/dL POC Glucose 308 H 254 H 307 H (83-110) mg/dl Calcium (8.4-10.2) mg/dl Phosphorus (2.5-4.6) mg/dL Magnesium (1.8-2.5) mg/dL 11/09/18 11/09/18 11/09/18 Range/Units 05:55 05:55 07:13 WBC 7.7 (5.0-10.0) 10^3/uL RBC 3.43 L (4.6-6.2) 10^6/uL Hgb 10.0 L (14.0-18.0) g/dL Hct 29.7 L (40.0-54.0) % MCV 86.6 (80-100) fL MCH 29.2 (27.0-34.0) pg MCHC 33.7 (33.0-35.0) g/dL Plt Count 444 (150-450) 10^3/uL Sodium 125 L (135-145) mmol/L Potassium 4.3 (3.6-5.0) mmol/L Chloride 89 L (101-111) mmol/L Carbon Dioxide 23.0 (21.0-31.0) mmol/L Anion Gap 17.3 BUN 17 (7-18) mg/dL Creatinine 0.9 (0.6-1.3) mg/dL Est Cr Clr Drug Dosing 76.94 mL/min Estimated GFR (MDRD) > 60 Glucose 256 H (74-105) mg/dL POC Glucose 275 H (83-110) mg/dl Calcium 8.5 (8.4-10.2) mg/dl Phosphorus 3.2 (2.5-4.6) mg/dL Magnesium 1.3 L (1.8-2.5) mg/dL GRAEME Results - Last 24 hrs: Microbiology 11/05/18 11:01 Aerobic Blood Culture - Preliminary Blood - Venous NO GROWTH AFTER 3 DAYS Anaerobic Blood Culture - Preliminary NO GROWTH AFTER 3 DAYS Med Orders - Current: Current Medications Discontinued Medications Acetaminophen (Tylenol Extra Strength) 1,000 mg PO Q6HR PRN PRN Reason: Pain Last Admin: 11/07/18 19:43 Dose: 1,000 mg Hydrocodone Bitart/Acetaminophen ([place] 325-5 Mg) 1 - 2 tab PO Q6H [facility] Last Admin: 11/08/18 12:51 Dose: Not Given Hydrocodone Bitart/Acetaminophen ([place] 325-5 Mg) 1 tab PO Q6HR PRN PRN Reason: Pain Albuterol (Proventil Hfa) 0 gm INH Q6HR PRN PRN Reason: Wheezing Alteplase, Recombinant (Cathflo Activase) 2 mg IV ASDIRECTED PRN PRN Reason: CATH PATENCY Last Admin: 11/08/18 12:19 Dose: 2 mg Aspirin (Halfprin) 81 mg PO DAILY [facility] Last Admin: 11/09/18 08:34 Dose: 81 mg Bisacodyl (Dulcolax) 5 mg PO DAILY PRN PRN Reason: Constipation Carvedilol (Coreg) 6.25 mg PO BIDMEALS [facility] Last Admin: 11/09/18 08:36 Dose: 6.25 mg Ceftriaxone Sodium (Rocephin) 2 gm IVPUSH DAILY@2100 [facility] Last Admin: 11/05/18 20:30 Dose: 2 gm Diphenhydramine HCl (Benadryl) 50 mg PO Q6HR PRN PRN Reason: Itching Docusate Sodium (Colace) 100 mg PO BID PRN PRN Reason: Constipation Enoxaparin Sodium (Lovenox) 40 mg SUBCUT DAILY [facility] Last Admin: 11/06/18 04:37 Dose: Not Given Furosemide (Lasix) 40 mg IVPUSH DAILY [facility] Stop: 11/08/18 15:31 Last Admin: 11/06/18 09:19 Dose: 40 mg Furosemide (Lasix) 40 mg PO DAILY [facility] Last Admin: 11/09/18 08:34 Dose: 40 mg Magnesium Sulfate 2 gm/ Premix 50 mls @ 25 mls/hr IV ONETIME ONE Stop: 11/06/18 10:59 Last Admin: 11/06/18 09:18 Dose: 25 mls/hr Ceftriaxone Sodium 2 gm/ (Sodium Chloride) 100 mls @ 200 mls/hr IV Q24H [facility] Last Admin: 11/08/18 20:32 Dose: 200 mls/hr Levothyroxine Sodium (Levothyroxine) 125 mcg PO ACBRK [facility] Last Admin: 11/09/18 05:53 Dose: 125 mcg Lidocaine (Lidoderm 5%) 700 mg TOP DAILY [facility] Last Admin: 11/09/18 08:36 Dose: 700 mg Lisinopril (Prinivil) 5 mg PO DAILY [facility] Last Admin: 11/09/18 08:35 Dose: 5 mg Magnesium Hydroxide (Milk Of Magnesia) 30 ml PO Q12H PRN PRN Reason: Constipation Magnesium Oxide (Magnesium Oxide) 750 mg PO 1200 [facility] Last Admin: 11/08/18 12:49 Dose: 750 mg Magnesium Oxide (Magnesium Oxide) 1,250 mg PO DAILY [facility] Last Admin: 11/09/18 08:34 Dose: 1,250 mg Magnesium Oxide (Magnesium Oxide) 500 mg PO ONETIME ONE Stop: 11/09/18 08:41 Last Admin: 11/09/18 09:26 Dose: 500 mg Miscellaneous Information (Remove Patch) 1 ea TRDERM BEDTIME [facility] Last Admin: 11/08/18 20:36 Dose: Not Given Multivitamins/Minerals (Vitamins And Minerals) 1 tab PO DAILY [facility] Last Admin: 11/09/18 08:34 Dose: 1 tab Non-Formulary Medication (Cholecalciferol (Vitamin D3) [Vitamin D3]) 1 tab PO BID [facility] Non-Formulary Medication (Methocarbamol [Methocarbamol]) 1 tab PO Q6H PRN PRN Reason: Muscle Spasm Non-Formulary Medication (Na Phos,M-B/Na Phos,Di-Ba [Fleet Enema]) 1 applic RECTAL DAILY PRN PRN Reason: Keep Vein Open Ondansetron HCl (Zofran Odt) 4 mg PO Q6H PRN PRN Reason: nausea, able to take PO Ondansetron HCl (Zofran) 4 mg IVPUSH Q6H PRN PRN Reason: Nausea/Vomiting Polyethylene Glycol (Miralax) 17 gm PO DAILY PRN PRN Reason: Constipation Last Admin: 11/08/18 17:28 Dose: 17 gm Polyethylene Glycol (Miralax) 17 gm PO DAILY PRN PRN Reason: Constipation Promethazine HCl (Phenergan) 25 mg PO Q6H PRN PRN Reason: nausea, able to take PO Promethazine HCl (Phenergan) 12.5 mg IM Q6H PRN PRN Reason: Nausea/Vomiting Senna/Docusate Sodium (Senna Plus) 1 tab PO BEDTIME PRN PRN Reason: Constipation Senna/Docusate Sodium (Senna Plus) 1 tab PO DAILY [facility] Last Admin: 11/09/18 08:35 Dose: 1 tab Simvastatin (Zocor) 10 mg PO BEDTIME [facility] Last Admin: 11/08/18 20:35 Dose: 10 mg Sodium Chloride (Sodium Chloride) 2 gm PO BID [facility] Last Admin: 11/09/18 08:34 Dose: 2 gm Sodium Chloride (Saline Flush) 10 ml FLUSH ASDIRECTED PRN PRN Reason: Keep Vein Open Last Admin: 11/08/18 10:51 Dose: 10 ml Tamsulosin HCl (Flomax) 0.4 mg PO BEDTIME [facility] Last Admin: 11/08/18 20:34 Dose: 0.4 mg - Exam General: Reports: Alert, Oriented, Cooperative, No Acute Distress HEENT: Reports: Pupils Equal, Pupils Reactive, Mucous Membr. Moist/[place] Neck: Reports: Other (Wearing cervical collar) Lungs: Reports: Clear to Auscultation, Normal Respiratory Effort Cardiovascular: Reports: Regular Rate, Regular Rhythm GI/Abdominal Exam: Normal Bowel Sounds, Soft, Non-Tender, No Distention Back Exam: Reports: Normal Inspection Extremities: Normal Inspection, Non-Tender, No Pedal Edema Skin: Reports: Warm, Dry, Intact Neurological: Reports: No New Focal Deficit Psy/Mental Status: Reports: Alert, Normal Affect, Normal Mood
== END 2018-11-09 10:04 | DRG 292 ==
LOC: DL.ED 11:21 → DL.MS 14:29 → UNDOADMIN 14:29 → DL.MS 15:13
PROVIDERS: ADMIT Internal Medicine; ATTEND Internal Medicine
DX: E87.1 Hypo-osmolality and hyponatremia (principal); I13.0 Hypertensive heart and chronic kidney disease with heart failure and stage 1 through stage 4 chronic kidney disease, or unspecified chronic kidney disease; N18.9 Chronic kidney disease, unspecified; M46.24 Osteomyelitis of vertebra, thoracic region; M54.9 Dorsalgia, unspecified; R78.81 Bacteremia; E22.2 Syndrome of inappropriate secretion of antidiuretic hormone; I12.9 Hypertensive chronic kidney disease with stage 1 through stage 4 chronic kidney disease, or unspecified chronic kidney disease; I50.9 Heart failure, unspecified; R60.0 Localized edema; R53.1 Weakness; E78.00 Pure hypercholesterolemia, unspecified; E11.649 Type 2 diabetes mellitus with hypoglycemia without coma; G89.29 Other chronic pain; E11.22 Type 2 diabetes mellitus with diabetic chronic kidney disease; E03.9 Hypothyroidism, unspecified; H91.90 Unspecified hearing loss, unspecified ear; H54.7 Unspecified visual loss; B95.4 Other streptococcus as the cause of diseases classified elsewhere; E78.5 Hyperlipidemia, unspecified; N18.3 Chronic kidney disease, stage 3 (moderate); E86.1 Hypovolemia; M46.40 Discitis, unspecified, site unspecified; D63.8 Anemia in other chronic diseases classified elsewhere; N32.0 Bladder-neck obstruction; R33.9 Retention of urine, unspecified; Z79.4 Long term (current) use of insulin; Z91.030 Bee allergy status; Z79.82 Long term (current) use of aspirin; Z79.899 Other long term (current) drug therapy; Z90.49 Acquired absence of other specified parts of digestive tract; Z98.1 Arthrodesis status
CPT/HCPCS: 36415; 51702; 51798; 80048; 80053; 81001; 82962; 83036; 83605; 83735; 83880; 84100; 85014; 85018; 85025; 85027; 85610; 85651; 86140; 87040; 97162-GP; 97166-GO; 99211; 99284; 99285; A9270-GY; J0696; J1940; J2997; J3475; J7050

== ENCOUNTER 2022-02-18 10:27 | Emergency (ER) | payer MEDICARE, MEDICAID ==
[2022-02-18] MEDS ORDERED: fentaNYL 100 MCG/2 ML SDV IV ONE ×2 (10:28→12:28)
[2022-02-18] MEDS ORDERED: Midazolam 1 MG/ML 2 ML SDV IV ONE ×2 (10:28→12:31)
[2022-02-18] MEDS ORDERED: Glucagon,Human Recombinant 1 MG Vial IVPUSH ONE (10:41)
[2022-02-18] MEDS ORDERED: Sodium Chloride 0.9% 10 ML Syringe FLUSH PRN (10:41)
[2022-02-18] MEDS ORDERED: fentaNYL 100 MCG/2 ML SDV ONE (11:45)
[2022-02-18] MEDS ORDERED: Midazolam 1 MG/ML 2 ML SDV ONE (11:45)
[2022-02-18] MEDS ORDERED: Dextrose 5%-0.45% NaCl 1,000 ML IV SCH (11:47)
== END 2022-02-18 15:25 | disposition home or self-care (01) ==
LOC: DL.ENDO 10:27
DX: T18.128A Food in esophagus causing other injury, initial encounter (principal); E78.00 Pure hypercholesterolemia, unspecified; E03.9 Hypothyroidism, unspecified; I10 Essential (primary) hypertension; E11.9 Type 2 diabetes mellitus without complications; Z79.899 Other long term (current) drug therapy; Z79.82 Long term (current) use of aspirin; Z79.4 Long term (current) use of insulin; Z91.030 Bee allergy status; Z20.822 Contact with and (suspected) exposure to COVID-19
CPT/HCPCS: 82947; 99284; J1610; J2250; J3010; J3490; J7042; U0002

== ENCOUNTER 2022-02-19 09:32 | Day surgery (SDC) | payer MEDICARE, MEDICAID ==
[~2022-02-19 09:32] MED LIST: Midazolam 1 MG/ML 2 ML SDV ONE; fentaNYL 100 MCG/2 ML SDV ONE
[2022-02-19] MEDS ORDERED: fentaNYL 100 MCG/2 ML SDV IV ONE ×2 (09:33→10:18)
[2022-02-19] MEDS ORDERED: Midazolam 1 MG/ML 2 ML SDV IV ONE ×2 (09:33→10:18)
[2022-02-19] MEDS ORDERED: Dextrose 5%-0.45% NaCl 1,000 ML IV SCH (09:45)
== END 2022-02-19 13:15 | disposition home or self-care (01) ==
LOC: DL.ENDO 09:32
PROVIDERS: ATTEND Internal Medicine Gastroenterology
DX: T18.128A Food in esophagus causing other injury, initial encounter (principal); K21.9 Gastro-esophageal reflux disease without esophagitis; K22.2 Esophageal obstruction
CPT/HCPCS: 43247; J2250; J3010; J7042

== ENCOUNTER 2022-07-13 21:16 | Emergency (ER) | payer MEDICARE, MEDICAID ==
[~2022-07-13 21:16] MED LIST changes: -Midazolam 1 MG/ML 2 ML SDV ONE; +Sodium Chloride 0.9% 1,000 ML IV ONE; +Sodium Chloride 0.9% 10 ML Syringe FLUSH PRN; -fentaNYL 100 MCG/2 ML SDV ONE
[2022-07-13 21:33] LABS: ANION GAP 17.5 mEq/L (7-13)
[2022-07-13] MEDS ORDERED: Heparin Sodium 5,000 Units/ML Vial IVPUSH ONE (21:47)
[2022-07-13 21:50] LABS: CORONAVIRUS COVID-19 NAA NEGATIVE (NEGATIVE)
[2022-07-13] MEDS ORDERED: Aspirin 81 MG Tab.Chew PO ONE (21:51)
[2022-07-13] MEDS ORDERED: Furosemide 40 MG/4 ML VIAL IVPUSH ONE (21:54)
[2022-07-13] MEDS ORDERED: Heparin Sodium/0.45% NaCl 25,000 UNITS/500 ML BAG IV SCH (22:00)
[2022-07-13] MEDS ORDERED: Iopamidol 612 MG/ML 100 ML Bottle IVPUSH ONE (22:22)
[2022-07-13] MEDS ORDERED: Iopamidol 755 Mg/ML 100 ML Bottle IVPUSH ONE (22:27)
== END 2022-07-13 23:24 ==
LOC: DL.ED 21:16
DX: I21.4 Non-ST elevation (NSTEMI) myocardial infarction (principal); I12.9 Hypertensive chronic kidney disease with stage 1 through stage 4 chronic kidney disease, or unspecified chronic kidney disease; E11.22 Type 2 diabetes mellitus with diabetic chronic kidney disease; N18.9 Chronic kidney disease, unspecified; E03.9 Hypothyroidism, unspecified; Z91.030 Bee allergy status; Z79.899 Other long term (current) drug therapy; Z79.82 Long term (current) use of aspirin; Z20.822 Contact with and (suspected) exposure to COVID-19
CPT/HCPCS: 0240U; 36415; 51702; 71045; 71260; 80053; 81001; 83605; 83735; 83880; 84484; 85025; 85379; 86140; 87086; 93005; 96365; 96375; 99285; A9270; J1644; J1940; J3490; J7030; Q9967

== ENCOUNTER 2024-04-26 19:51 | Emergency (ER) | payer MEDICARE, MEDICAID ==
[2024-04-26 20:46] LABS: APPEARANCE,URINE CLOUDY (CLEAR); COLOR,URINE YELLOW (YELLOW); PH,URINE 7.5 (5.0-9.0)
[2024-04-26 20:47] LABS: BILIRUBIN,URINE NEGATIVE (NEGATIVE); GLUCOSE,URINE 250 (NEGATIVE); KETONES,URINE NEGATIVE (NEGATIVE); PROTEIN,URINE 100 (NEGATIVE)
[2024-04-26 20:48] LABS: LEUKOCYTE ESTERASE,URINE MODERATE (NEGATIVE); NITRITE,URINE NEGATIVE (NEGATIVE); OCCULT BLOOD,URINE SMALL (NEGATIVE); UROBILINOGEN,URINE 0.2 mg/dL (0.2-1.0)
[2024-04-26 20:50] LABS: BACTERIA,URINE MODERATE /HPF (0-FEW/HPF); CALCIUM OXALATE CRYSTALS,URINE FEW /HPF (NOT SEEN); EPITHELIAL CELLS,URINE FEW /HPF (NOT SEEN)
== END 2024-04-26 21:35 | disposition home or self-care (01) ==
LOC: DL.ED 19:51
DX: T83.098A Other mechanical complication of other urinary catheter, initial encounter (principal); N39.0 Urinary tract infection, site not specified; I10 Essential (primary) hypertension; E78.00 Pure hypercholesterolemia, unspecified; E11.9 Type 2 diabetes mellitus without complications; E03.9 Hypothyroidism, unspecified; Z90.49 Acquired absence of other specified parts of digestive tract; Z79.4 Long term (current) use of insulin; Z79.899 Other long term (current) drug therapy; Z79.82 Long term (current) use of aspirin; Z79.890 Hormone replacement therapy; Z91.030 Bee allergy status
CPT/HCPCS: 81001; 87086; 99284

== ENCOUNTER 2025-05-08 00:47 | Emergency (ER) | payer MEDICAID, MEDICARE ==
[2025-05-07 23:58] LABS: BASOPHILS PERCENT AUTO 0.5 % (0.0-1.0); EOSINOPHILS PERCENT AUTO 9.9 % (1.0-3.0); LYMPHOCYTES PERCENT AUTO 17.4 % (20.5-50.1); MONOCYTES PERCENT AUTO 4.1 % (2-8); NEUTROPHILS PERCENT AUTO 68.1 % (42.2-75.2); PLATELET COUNT,PLT 191 10^3/uL (150-450); RED BLOOD CELL COUNT 2.48 10^6/uL (4.6-6.2); WHITE BLOOD CELL COUNT,WBC 8.6 10^3/uL (5.0-10.0)
[2025-05-08 00:20] LABS: ALANINE AMINOTRANSFERASE,ALT 9.0 U/L (16-63); ASPARTATE AMNIOTRANSFERASE,AST 16.0 U/L (15-37); BILIRUBIN TOTAL 0.3 mg/dL (0.2-1.0); BLOOD UREA NITROGEN,BUN 62.0 mg/dL (7-18); CARBON DIOXIDE,CO2 29.0 mmol/L (21-32); CHLORIDE,CL 98.0 mmol/L (98-107); CREATININE 2.69 mg/dL (0.70-1.30); EST CRCL DRUG DOSING (CG) 20.83 mL/min; POTASSIUM,K 3.4 mmol/L (3.5-5.1); PROTEIN TOTAL,TP 7.0 g/dL (6.4-8.2); SODIUM,NA 137.0 mmol/L (136-145)
[2025-05-08 00:22] LABS: A/G RATIO 0.75; ESTIMATED GFR 22.0 mL/min (>=60); GLUCOSE RANDOM 493.0 mg/dL (70-99)
[2025-05-08] MEDS: Heparin Sodium 5,000 Units/ML Vial IVPUSH ONE (00:44)
[~2025-05-08 00:47] MED LIST changes: -Sodium Chloride 0.9% 1,000 ML IV ONE
[2025-05-08] MEDS: Heparin Sodium/0.45% NaCl 25,000 UNITS/500 ML BAG IV SCH (00:49)
[2025-05-08 00:59] LABS: INR 1.0 (0.9-1.2); PTT,PARTIAL THROMBOPLSTIN TIME 26.0 SEC (22.0-34.0)
== END 2025-05-08 03:33 ==
LOC: DL.ED 00:47
DX: I21.4 Non-ST elevation (NSTEMI) myocardial infarction (principal); I13.0 Hypertensive heart and chronic kidney disease with heart failure and stage 1 through stage 4 chronic kidney disease, or unspecified chronic kidney disease; I50.9 Heart failure, unspecified; N18.9 Chronic kidney disease, unspecified; E78.00 Pure hypercholesterolemia, unspecified; E11.22 Type 2 diabetes mellitus with diabetic chronic kidney disease; E03.9 Hypothyroidism, unspecified; Z91.030 Bee allergy status; Z79.890 Hormone replacement therapy; Z79.82 Long term (current) use of aspirin; Z79.899 Other long term (current) drug therapy; Z90.49 Acquired absence of other specified parts of digestive tract
CPT/HCPCS: 36415; 71045; 80053; 83735; 84484; 85025; 85379; 85610; 85730; 86140; 93005; 93010; 96365; 96366; 99285; A9270; J1644; J7030